=== PATIENT | male | born 1940 | race Caucasian/White ===

== ENCOUNTER 2016-12-19 12:06 | Observation (INO) | payer MEDICARE, OTHER ==
[2016-12-19 13:10] LABS: Hematocrit 46 % (42-52); Hemoglobin 14.8 g/dl (14.0-18.0); Mean Corpuscular HGB Conc 33 g/dl (31-36); Mean Corpuscular Hemoglobin 30 pg (27-31); Mean Corpuscular Volume 93 fL (80-94); Mean Platelet Volume 9 um3 (7.4-10.4); Red Blood Count 4.92 10^6/ul (4.0-5.4); Red Cell Distribution Width 14 % (10.5-15); White Blood Count 6.5 10^3/ul (3.5-10.8)
[2016-12-19 13:26] LABS: ALT 19 U/L (7-52); AST 34 U/L (13-39); Alkaline Phosphatase 54 U/L (34-104); Anion Gap 5 mmol/L (2-11); Blood Urea Nitrogen 22 mg/dL (6-24); CO2 Carbon Dioxide 29 mmol/L (22-32); Calcium 9.3 mg/dL (8.6-10.3); Chloride 104 mmol/L (101-111); EGFR African American 83.7 (>60); EGFR Non-African American 65.1 (>60); Globulin 3.2 g/dL (2-4); Glucose 102 mg/dL (70-100); Potassium 3.7 mmol/L (3.5-5.0); Sodium 138 mmol/L (133-145); Total Protein 7.2 g/dL (6.4-8.9)
[2016-12-19 13:28] LABS: Troponin I 0.01 ng/mL (<0.04)
[2016-12-19] MEDS ORDERED: Iohexol 300* (CONTRAST) 10 ML SDV IV ONE ×2 (13:33→18:19)
[2016-12-19 13:48] LABS: Lipase < 10 U/L (11.0-82.0)
--- NOTE | 2016-12-19 14:28 | RAD ---
INDICATION: Pedal edema. COMPARISON: There are no prior studies available for comparison. TECHNIQUE: Multiple real-time, color flow and Doppler tracings of both lower extremities were obtained. FINDINGS: The common femoral, femoral, profunda femoral and popliteal veins all demonstrate normal compressibility, augmentation with compression and phasic response with respiration. The posterior tibial and peroneal veins demonstrate normal compressibility and augmentation with compression. IMPRESSION: NO EVIDENCE FOR DEEP VENOUS THROMBOSIS.
[2016-12-19] MEDS ORDERED: Ondansetron INJ* 2 MG/ML VIAL IV PRN (14:50)
[2016-12-19] MEDS ORDERED: Acetaminophen TAB* 325 MG PO PRN (14:50)
[2016-12-19] MEDS: NS 0.9% 1000 ML* 1,000 ML IV SCH (16:23)
--- NOTE | 2016-12-19 19:12 | HP ---
HISTORY AND PHYSICAL: DATE OF ADMISSION: 12/19/16 PRIMARY CARE PROVIDER: Dr. Root. ATTENDING PHYSICIAN WHILE IN THE HOSPITAL: Dr. Oziel Garcia* (report dictated by Jb Patrick NP). CHIEF COMPLAINT: Altered mental status. HISTORY OF PRESENT ILLNESS: Mr. Colmenares is a 76-year-old male patient who carries a history of RIKA, he does not wear a CPAP; history of GERD; hypertension ; hyperlipidemia; atrial fibrillation; depression; dementia; history of BPH, comes into the ER today stating that he does not really remember what happened this morning, last thing he knew is in the last couple of weeks, he has been having cramping in bilateral lower extremities, in his legs, and in his calves as well and in his thighs. He says that he has also been noticing having some difficulty with abdominal discomfort around his waistline for the last year. He says he has not had any recent nausea or vomiting, no diarrhea. He denied having any fevers or chills. No cough. No shortness of breath or any chest pain. He says he does not really recall the events today, but his poured on his face to try to wake him up this morning. She sternal rubbed him, but despite this he would not wake up. So, she got concerned, she called 911 immediately. By the time she finished with 911, the patient was arousing, he was awakening, he says he feels like he was in and out of consciousness. He does not even really remember talking to his , but he could hear her calling 911. There were no reports of seizure-like activity. There were no reports of slurred speech, facial drooping, weakness to one side. He came into the ER and when he came into the ER, he was awake and alert x3, but there was concern because of this episode and the hospitalist service was asked to evaluate for admission. PAST MEDICAL HISTORY: Significant for: 1. RIKA. 2. GERD. 3. Hypertension. 4. Hyperlipidemia. 5. Atrial fibrillation. 6. Depression. 7. Dementia. 8. BPH. PAST SURGICAL HISTORY: He has had a pacemaker placed. MEDICATIONS: Home medications according to the pill bottles that were brought in by the patient includes: 1. Trazodone 50 mg at bedtime. 2. Catapres 0.2 mg daily. 3. Celebrex 200 mg p.o. b.i.d. 4. Warfarin 4.5 mg daily. 5. Flomax 0.4 mg p.o. daily. 6. Oxycodone 10 mg p.o. every 4 hours as needed. 7. OxyContin 15 mg p.o. b.i.d. 8. Namenda 28 mg p.o. daily. 9. Gabapentin 300 mg p.o. b.i.d. 10. Proscar 5 mg p.o. daily. 11. Nexium 40 mg daily. 12. Aricept 5 mg at bedtime. 13. Colace 100 mg p.o. b.i.d. 14. Lipitor 20 mg at bedtime. ALLERGIES TO MEDICATIONS: Include FENTANYL. FAMILY HISTORY: Both his parents had cancer. Father had lung cancer. SOCIAL HISTORY: He does not smoke, does not drink. Surrogate decision maker is his . REVIEW OF SYSTEMS: There is no documented fever. He denied having any significant weight change. There was no double vision. He denies having any ear discharge. There is no rhinorrhea. No sore throat. No thyroid enlargement. denies having any chest pain. There is no orthopnea, no nocturnal dyspnea. There is no abdominal pain. No nausea, no vomiting. No dysuria, no frequency. No seizure. There was no loss of consciousness. No pruritus and no skin ulcerations. Review of 14 systems completed, all others negative. PHYSICAL EXAMINATION GENERAL: At this time, Mr. Colmenares is a 76-year-old male patient. He appears to be well-nourished, well-developed. He is sitting in the ER stretcher. He does not appear to be in any acute distress. VITAL SIGNS: Blood pressure 140/85, pulse 62, respirations 18, O2 sat 96%, temperature of 96.7. HEENT: Head is atraumatic, normocephalic. Eyes: EOMs are intact. Sclerae were anicteric and not pale. Throat: Oral mucosa appears to be moist. No oropharyngeal erythema. NECK: Supple. LUNGS: Clear to auscultation bilaterally. No wheezes, rales, or rhonchi. HEART: Sounds S1, S2. Regular rate and rhythm. No murmurs, rubs, or gallops. ABDOMEN: Soft, flat, nontender. Bowel sounds present. EXTREMITIES: Pulses were 2+ throughout. He is able to move all 4 extremities with 5/5 strength. NEUROLOGIC: The patient now is awake. He is alert. He knows he is in the hospital. He knows the president and he knows the month. He is oriented to himself as well. His accounting intern were equal. Tongue midline. No facial drooping. [id number] intact bilaterally. No pronator drift. No gross focal deficits. SKIN: Intact. DIAGNOSTIC STUDIES/LAB DATA: Labs today revealed WBC of 6.5, RBC of 4.92, hemoglobin of 14.8, hematocrit of 46, platelets 149. INR of 3.31, PTT of 43.5. Sodium 138, potassium is 3.7, chloride of 104, bicarb 29, BUN 22, creatinine 1.10, glucose 102, his lactate was 0.8, calcium 9.3. Total bili 1.0, AST 34, ALT 19, alk phos 54. Troponin 0.01. His BNP was 47. Albumin 4.0. Lipase is negative. Urine is pending. He had a venous Doppler ultrasound, which revealed no evidence of DVT. EKG obtained today revealed a paced rhythm with AFib, Aflutter with a rate of 67. His chest x-ray, brain CT, and CT of the abdomen and pelvis are pending. Old medical records were reviewed. ASSESSMENT AND PLAN: Mr. Colmenares is a 76-year-old male patient coming into the ER today with complaints of altered mental status. He will be admitted under observation status for: 1. Altered mental status. Etiology is unclear, it certainly could be polypharmacy. He is on several narcotics. He is also on trazodone along with gabapentin. I will cut back down the OxyContin and I will also cut down the Neurontin and I have the held the trazodone to see how he responds to this. For the time being, I think we will get neuro checks every 4 hours. We will get a CT of the brain and urine is pending. I will continue to monitor. 2. Obstructive sleep apnea. Follow with his primary. I would recommend a mask at night to sleep with CPAP, but he refuses this. So, I think he can follow with his primary. 3. Gastroesophageal reflux disease. Continue PPI therapy. 4. Hypertension. Continue meds as prescribed. 5. Hyperlipidemia. Continue meds as prescribed. 6. Atrial fibrillation. Continue with warfarin and meds as prescribed. 7. Depression. Continue with supportive care. 8. Chronic pain. Continue with meds as prescribed, but at a reduced rate and intensity, I did reduce the dosage and I reduced the frequency. 9. Dementia. Continue with supportive care. 10. Benign prostatic hyperplasia. Continue with his Proscar. 11. DVT prophylaxis. His INR is 3.3, he will be placed on SCDs. 12. Code status. He wishes to be a DNR. We will try to find a MOLST form, if there is not one filled out, we will fill out now one with him. 13. Fluids, electrolytes, and nutrition. He can have a heart-healthy diet. TIME SPENT: On the admission 60 minutes, greater than half the time was spent face- to-face with the patient obtaining my history and physical; other half the time was spent going over the plan of care with the patient and implementing the plan of care. I did discuss the plan of care with my attending, Dr. Garcia; he is in agreement. JB PATRICK NP CC: Dr. Root* [id number]/[facility] #: [id number] POOL
--- NOTE | 2016-12-19 19:13 | RAD ---
HISTORY: Altered mental status COMPARISONS: May 26, 2015 TECHNIQUE: Multiple contiguous axial CT scans were obtained of the head without intravenous contrast. FINDINGS: HEMORRHAGE/INFARCT: There is no hemorrhage or acute infarct. MASSES/SHIFT: There is no mass or shift. EXTRA-AXIAL SPACES: There are no extra-axial fluid collections. SULCI AND VENTRICLES: There is diffuse and proportional enlargement of the sulci and ventricles. CEREBRUM: There are no focal parenchymal abnormalities. BRAINSTEM: There are no focal parenchymal abnormalities. CEREBELLUM: There are no focal parenchymal abnormalities. VESSELS: The vessels are grossly normal. PARANASAL SINUSES: The paranasal sinuses are clear. ORBITS: The orbits are unremarkable. BONES AND SOFT TISSUE: No bone or soft tissue abnormalities are noted. OTHER: None IMPRESSION: NO ACUTE INTRACRANIAL PATHOLOGY.
--- NOTE | 2016-12-19 19:20 | RAD ---
CLINICAL HISTORY: Abdominal pain COMPARISON: November 24, 2014 TECHNIQUE: Multiple contiguous axial CT scans were obtained of the abdomen and pelvis after the administration of intravenous contrast. Coronal and sagittal multiplanar reformations are submitted for review. Oral contrast was administered. Delayed images were obtained through the abdomen and pelvis. FINDINGS: Evaluation is limited in that the dome of the liver is not completely included within the [id number] the current examination. LUNG BASES: The lung bases are clear. LIVER: The visualized liver is normal in shape, size, and contour. The liver is diffusely low in attenuation compared to the spleen BILE DUCTS: There is no intrahepatic or extrahepatic biliary dilatation. GALLBLADDER: The gallbladder is incompletely distended but is grossly normal PANCREAS: The pancreas is normal, without mass or ductal dilatation. SPLEEN: Normal in size and appearance. UPPER GI TRACT: Evaluation of the gastrointestinal tract is limited by incomplete gastric distention. The upper GI tract is unremarkable. SMALL BOWEL AND MESENTERY: The small bowel is normal in contour, course, and caliber. There is no obstruction or dilatation. COLON: The colon is normal in contour, course, caliber. There is no pericolonic inflammatory change. ADRENALS: Normal bilaterally. KIDNEYS: Continue noted are renal cysts. There is no appreciable hydronephrosis or nephrolithiasis BLADDER: There is diffuse bladder wall thickening. The bladder is incompletely distended. PELVIC ORGANS: The prostate gland is normal. The seminal vesicles are symmetric. AORTA: The aorta is normal. IVC: Unremarkable LYMPH NODES: There is no lymphadenopathy by size criteria. ABDOMINAL WALL: There is no evidence for abdominal wall hernia. BONES AND SOFT TISSUES: Degenerative changes are noted of the spine most pronounced at L1-L2 OTHER: None IMPRESSION: 1. LIMITED STUDY. 2. FATTY LIVER. 3. DIFFUSE BLADDER WALL THICKENING WHICH CAN BE SEEN WITH CYSTITIS
[2016-12-19 20:03] LABS: Urine Bilirubin Negative (Negative); Urine Glucose Negative (Negative); Urine Nitrite Negative (Negative)
[2016-12-19 20:24] LABS: Benzodiazepine Urine Screen None Detected (None Detect)
[2016-12-19] MEDS ORDERED: Donepezil TAB* 5 MG PO SCH (21:00)
[2016-12-19] MEDS ORDERED: cefTRIAXone VIAL(*) 1,000 MG in NS 0.9% 50 ML* 50 ML IVPB SCH (21:00)
[2016-12-19] MEDS ORDERED: Atorvastatin* 20 MG TAB PO SCH (21:00)
--- NOTE | 2016-12-19 22:04 | RAD ---
Indication: Altered mental status. Calf tightness, pain, cramping. Comparison: May 26, 2015 Technique: Upright AP 1230 hours Report: Elevated lung volumes with patchy rarefaction of interstitial markings no focal pulmonary lesion, alveolar consolidation, pleural effusion, pneumothorax. Negative for cardiomegaly. Unchanged position of the RIGHT atrial and RIGHT ventricular level pacemaker leads accounting for rightward rotation. Unremarkable central pulmonary vasculature. Mildly tortuous descending thoracic aorta. Negative for free air beneath the diaphragm. IMPRESSION: Stigmata of probable chronic obstructive pulmonary disease and emphysema. No acute cardiopulmonary process evident.
[2016-12-19] MEDS: oxyCODONE SR TAB(*) 10 MG TAB.SR PO SCH (22:34)
[2016-12-19] MEDS: Gabapentin CAP(*) 100 MG PO SCH (22:35)
[2016-12-19] MEDS: Docusate CAP* 100 MG PO SCH (22:35)
--- NOTE | 2016-12-19 23:49 | ED ---
Ana Vanessa Anna, scribed for Andres Cruz MD on 12/19/16 at 1311 . Altered Mental Status - HPI Summary HPI Summary: Patient is a 76 y/o male coming to [facility] presenting with altered mental status that began this morning. His reports that she had a difficult time waking him up this morning at 0900. She tried using cold water and other strategies, but he did not rouse for an hour. She reports that his breathing was irregular, as if he was gasping for air, and he was diaphoretic. She called the ambulance. At this point, the patient reports he feels tired. He has bilateral leg pain and lower abdominal pain. The severity of his pain is described as 7/10. The abdominal pain has been present for about a year and has been checked out with no diagnosis. The leg pain started more recently, within the last two weeks, and has not been previously evaluated. He denies fever, chills, cough, congestion, changes in BM or urination, blood in stool. He takes 15 mg and 10 mg of oxycodone but does not think he overdosed. He is prescribed 6 pills/day, up to 90 mg/day. He takes 2 15mg/day. He took two of the 10 mg pills yesterday, which is pretty typical for him. His last dose was last night. He has not taken any medication today. His history is significant for HTN, HLD, a fib, chronic back pain. He has chronic pain throughout his body with no known cause. He takes Warfarin and Gabapentin daily. He takes Trazodone to help him sleep. He and his both state he would like to be admitted to the hospital. Patient medications have been reviewed this visit. - History Of Current Complaint Chief Complaint: EDAltMentalStatus Stated Complaint: IN PAIN Time Seen by Provider: 12/19/16 13:03 Hx Obtained From: Patient, Family/Skelp Processor - accompanied by Onset/Duration: Resolved - Allergies/Home Medications Allergies/Adverse Reactions: Allergies Allergy/AdvReac Type Severity Reaction Status Date / Time Fentanyl Allergy Unknown Verified 03/14/16 12:42 Reaction Details Home Medications: Home Medications Docusate CAP* [Colace Cap*] 100 mg PO BID 12/19/16 [History Confirmed 12/19/16] Gabapentin CAP(*) [Neurontin 300 CAP(*)] 300 mg PO BID 12/19/16 [History Confirmed 12/19/16] Oxycodone HCl [Oxycontin] 15 mg PO BID 12/19/16 [History Confirmed 12/19/16] Oxycodone TAB(NF) [Oxycodone HCl 10 MG] 10 mg PO Q4HR PRN 12/19/16 [History Confirmed 12/19/16] Warfarin TAB(*) [Coumadin TAB(*)] 4.5 mg PO DAILY 12/19/16 [History Confirmed ] PMH/Surg Hx/FS Hx/Imm Hx Endocrine/Hematology History: Reports: Hx Anticoagulant Therapy Denies: Hx Diabetes, Hx Thyroid Disease Cardiovascular History: Reports: Hx Atrial Fibrillation, Hx Hypercholesterolemia , Hx Hypertension, Hx Pacemaker/ICD - X 2 / 12 YEARS AGO., Other Cardiovascular Problems/Disorders - HIGH CHOLESTEROL, ON BLOOD THINNERS Denies: Hx Congestive Heart Failure Respiratory History: Reports: Hx Asthma, Hx Sleep Apnea Denies: Hx Chronic Obstructive Pulmonary Disease (COPD) GI History: Reports: Hx Gastroesophageal Reflux Disease Denies: Hx Ulcer History: Denies: Hx Dialysis, Hx Renal Disease Musculoskeletal History: Reports: Hx Back Problems - chronic pain, Other Musculoskeletal History - Chronic Pain Sensory History: Reports: Hx Contacts or Glasses Opthamlomology History: Reports: Hx Contacts or Glasses Neurological History: Reports: Hx Nerve Disease - Surgical History Surgery Procedure, Year, and Place: Pacemaker insertion x2; Cardiac Cath Hx Anesthesia Reactions: No Infectious Disease History: No Infectious Disease History: Reports: Hx Hepatitis - as young adult - does not know type, Hx Shingles - 2009 Denies: Hx Clostridium Difficile, Hx Human Immunodeficiency Virus (HIV), Hx of Known/Suspected MRSA, Hx Tuberculosis, Hx Known/Suspected VRE, Hx Known/ Suspected VRSA, History Other Infectious Disease, Traveled Outside the [place] in Last 30 Days - Family History Known Family History: Positive: Other - Hx transthoracic aortic aneurysm, brother. Hx Pancreatic CA, sister. - Social History Occupation: Retired Lives: With Family Alcohol Use: Weekly Alcohol Amount: 3-4 24oz a week Substance Use Type: Reports: None, Prescribed Hx Tobacco Use: No Smoking Status (MU): Never Smoked Tobacco Review of Systems Positive: Fatigue, Skin Diaphoresis Positive: Shortness Of Breath Positive: Abdominal Pain - chronic Positive: Arthralgia, Myalgia Neurological: Other - AMS All Other Systems Reviewed And Are Negative: Yes Physical Exam Triage Information Reviewed: Yes Vital Signs On Initial Exam: Initial Vitals Temp Pulse Resp BP Pulse Ox 96.7 F 88 20 145/87 97 12/19/16 12:10 12/19/16 12:10 12/19/16 12:10 12/19/16 12:10 12/19/16 12:10 Vital Signs Reviewed: Yes Appearance: Positive: Well-Appearing, No Pain Distress Skin: Positive: Warm, Skin Color Reflects Adequate Perfusion, Dry Head/Face: Positive: Normal Head/Face Inspection Eyes: Positive: EOMI, AR[place]IO ENT: Positive: Normal ENT inspection Neck: Positive: Supple, Nontender Respiratory/Lung Sounds: Positive: Clear to Auscultation, Breath Sounds Present Cardiovascular: Positive: RRR Abdomen Description: Positive: Soft, Other: - Mild abdominal tenderness Bowel Sounds: Positive: Present Musculoskeletal: Positive: Strength/ROM Intact, Other - Bilateral calf tenderness. Negative: Edema Left, Edema Right Neurological: Positive: Normal, Sensory/Motor Intact, Alert, Oriented to Person Place, Time Psychiatric: Positive: Affect/Mood Appropriate Diagnostics - Vital Signs Vital Signs Temp Pulse Resp BP Pulse Ox 12/19/16 12:16 96.7 F 85 16 145/87 100 12/19/16 12:10 96.7 F 88 20 145/87 97 - Laboratory Lab Results: Lab Results 12/19/16 12/19/16 12/19/16 Range/Units 12:54 12:54 12:54 WBC 6.5 (3.5-10.8) 10^3/ul RBC 4.92 (4.0-5.4) 10^6/ul Hgb 14.8 (14.0-18.0) g/dl Hct 46 (42-52) % MCV 93 (80-94) fL MCH 30 (27-31) pg MCHC 33 (31-36) g/dl RDW 14 (10.5-15) % Plt Count 149 L (150-450) 10^3/ul MPV 9 (7.4-10.4) um3 Neut % (Auto) 54.4 (38-83) % Lymph % (Auto) 30.0 (25-47) % [place] % (Auto) 9.3 H (1-9) % Eos % (Auto) 5.0 (0-6) % Baso % (Auto) 1.3 (0-2) % Absolute Neuts (auto) 3.5 (1.5-7.7) 10^3/ul Absolute Lymphs (auto) 2.0 (1.0-4.8) 10^3/ul Absolute Monos (auto) 0.6 (0-0.8) 10^3/ul Absolute Eos (auto) 0.3 (0-0.6) 10^3/ul Absolute Basos (auto) 0.1 (0-0.2) 10^3/ul Absolute Nucleated RBC 0.01 10^3/ul Nucleated RBC % 0.1 INR (Anticoag Therapy) 3.31 H (0.89-1.11) APTT 43.5 H (26.0-36.3) seconds Sodium 138 (133-145) mmol/L Potassium 3.7 (3.5-5.0) mmol/L Chloride 104 (101-111) mmol/L Carbon Dioxide 29 (22-32) mmol/L Anion Gap 5 (2-11) mmol/L BUN 22 (6-24) mg/dL Creatinine 1.10 (0.67-1.17) mg/dL Est GFR ( Amer) 83.7 (>60) Est GFR (Non-Af Amer) 65.1 (>60) BUN/Creatinine Ratio 20.0 (8-20) Glucose 102 H (70-100) mg/dL Lactic Acid (0.5-2.0) mmol/L Calcium 9.3 (8.6-10.3) mg/dL Total Bilirubin 1.00 (0.2-1.0) mg/dL AST 34 (13-39) U/L ALT 19 (7-52) U/L Alkaline Phosphatase 54 (34-104) U/L Troponin I 0.01 (<0.04) ng/mL B-Natriuretic Peptide ( - 100) pg/mL Total Protein 7.2 (6.4-8.9) g/dL Albumin 4.0 (3.2-5.2) g/dL Globulin 3.2 (2-4) g/dL Albumin/Globulin Ratio 1.3 (1-3) Lipase < 10 L (11.0-82.0) U/L 12/19/16 12/19/16 Range/Units 12:54 12:54 WBC (3.5-10.8) 10^3/ul RBC (4.0-5.4) 10^6/ul Hgb (14.0-18.0) g/dl Hct (42-52) % MCV (80-94) fL MCH (27-31) pg MCHC (31-36) g/dl RDW (10.5-15) % Plt Count (150-450) 10^3/ul MPV (7.4-10.4) um3 Neut % (Auto) (38-83) % Lymph % (Auto) (25-47) % [place] % (Auto) (1-9) % Eos % (Auto) (0-6) % Baso % (Auto) (0-2) % Absolute Neuts (auto) (1.5-7.7) 10^3/ul Absolute Lymphs (auto) (1.0-4.8) 10^3/ul Absolute Monos (auto) (0-0.8) 10^3/ul Absolute Eos (auto) (0-0.6) 10^3/ul Absolute Basos (auto) (0-0.2) 10^3/ul Absolute Nucleated RBC 10^3/ul Nucleated RBC % INR (Anticoag Therapy) (0.89-1.11) APTT (26.0-36.3) seconds Sodium (133-145) mmol/L Potassium (3.5-5.0) mmol/L Chloride (101-111) mmol/L Carbon Dioxide (22-32) mmol/L Anion Gap (2-11) mmol/L BUN (6-24) mg/dL Creatinine (0.67-1.17) mg/dL Est GFR ( Amer) (>60) Est GFR (Non-Af Amer) (>60) BUN/Creatinine Ratio (8-20) Glucose (70-100) mg/dL Lactic Acid 0.8 (0.5-2.0) mmol/L Calcium (8.6-10.3) mg/dL Total Bilirubin (0.2-1.0) mg/dL AST (13-39) U/L ALT (7-52) U/L Alkaline Phosphatase (34-104) U/L Troponin I (<0.04) ng/mL B-Natriuretic Peptide 47 ( - 100) pg/mL Total Protein (6.4-8.9) g/dL Albumin (3.2-5.2) g/dL Globulin (2-4) g/dL Albumin/Globulin Ratio (1-3) Lipase (11.0-82.0) U/L Result Diagrams: 12/19/16 12:54 12/19/16 12:54 Lab Statement: Any lab studies that have been ordered have been reviewed, and results considered in the medical decision making process. - Radiology CXR Xray Interpretation: No Acute Changes Radiology Interpretation Completed By: Radiologist - IMPRESSION: Stigmata of probable chronic obstructive pulmonary disease and emphysema. No acute cardiopulmonary process evident. - CT CT Brain WO CT Interpretation: No Acute Changes CT Interpretation Completed By: Radiologist - IMPRESSION: NO ACUTE INTRACRANIAL PATHOLOGY. CT abd/pel CT Interpretation: Positive (See Comments) CT Interpretation Completed By: Radiologist - IMPRESSION: 1. LIMITED STUDY. 2. FATTY LIVER. 3. DIFFUSE BLADDER WALL THICKENING WHICH CAN BE SEEN WITH CYSTITIS - Ultrasound No standard instances Ultrasound Interpretation: No Acute Changes Ultrasound Interpretation Completed By: Radiologist - VENOUS DOPPLER STUDY IMPRESSION: NO EVIDENCE FOR DEEP VENOUS THROMBOSIS. - EKG 1442 Cardiac Rate: NL - paced at 67 bpm EKG Rhythm: Sinus Rhythm ST Segment: Normal Ectopy: None Altered Mental Statu Course/Dx - Course Course Of Treatment: NO CRITICAL CARE TIME Assessment/Plan: ADMIT HOSPITALIST STABLE - Diagnoses Discharge Diagnoses: AMS, Altered mental state - Provider Notifications Discussed Care Of Patient With: Jb Patrick (Hospitalist PA) at 1409. Dr. Garcia (Hospitalist) at 1414. Agrees to accept patient for admission. Discharge - Discharge Plan Condition: Stable Disposition: ADMITTED TO [facility] documentation as recorded by the Ana todd Anna accurately reflects the service I personally performed and the decisions made by me, Andres Cruz MD.
[2016-12-20] MEDS: NS 0.9% 1000 ML* 1,000 ML IV SCH (01:30)
[2016-12-20 05:46] LABS: Hematocrit 44 % (42-52); Hemoglobin 14.6 g/dl (14.0-18.0); Mean Corpuscular HGB Conc 33 g/dl (31-36); Mean Corpuscular Hemoglobin 31 pg (27-31); Mean Corpuscular Volume 91 fL (80-94); Mean Platelet Volume 9 um3 (7.4-10.4); Red Blood Count 4.79 10^6/ul (4.0-5.4); Red Cell Distribution Width 14 % (10.5-15); White Blood Count 5.5 10^3/ul (3.5-10.8)
[2016-12-20 06:02] LABS: BUN/Creatinine Ratio 16.3 (8-20); Calcium 8.7 mg/dL (8.6-10.3); EGFR African American 102.9 (>60); Potassium 3.8 mmol/L (3.5-5.0)
[2016-12-20 07:25] VITALS: BP 150/93
[2016-12-20] MEDS: oxyCODONE SR TAB(*) 10 MG TAB.SR PO SCH (08:33)
[2016-12-20] MEDS: Gabapentin CAP(*) 100 MG PO SCH (08:33)
[2016-12-20] MEDS: Docusate CAP* 100 MG PO SCH (08:35)
[2016-12-20] MEDS ORDERED: Finasteride TAB* 5 MG PO SCH (09:00)
[2016-12-20] MEDS ORDERED: cloNIDine TAB* 0.1 MG PO SCH (09:00)
[2016-12-20] MEDS ORDERED: Memantine XR CAP* 28 MG CAP.XR PO SCH (09:00)
[2016-12-20] MEDS ORDERED: Tamsulosin CAP* 0.4 MG PO SCH (09:00)
[2016-12-20] MEDS ORDERED: Omeprazole CAP* 20 MG PO SCH (09:00)
[2016-12-20] MEDS ORDERED: oxyCODONE TAB* 5 MG TAB PO PRN (10:23)
--- NOTE | 2016-12-20 13:28 | DS ---
CC: Dr. Root DISCHARGE SUMMARY: DATE OF ADMISSION: DATE OF DISCHARGE: 12/20/16 HOSPITAL COURSE: This 76-year-old man presented because of obtundation. His said she has trie d to wake up at 9 o'clock in the morning at the day of admission because he had an appointment. He often sleeps quite late. She could not arouse him, she threw cold water on his face. Eventually, lolita giordano did come around and I think it may not had been until he got to the emergency room. His OxyContin and trazodone were both discontinued. His gabapentin dose was decreased. He was put on a p.r.n. dose of oxycodone. On the morning of discharge, he was completely back to his baseline. I had a long discussion with lolita monreal . They said he and she both agreed that they want him to get off medications. She seemed to imply they want him to get off all medications. I am not sure that is a realistic goal. We have ce rtainly cut back his medicines quite a bit, possibly he could have more medications reduced as an ou tpatient. My recommendation is I have sent in a prescription for gabapentin 100 mg for him to take twice a day for 2 weeks then stop. As mentioned above, his trazodone and OxyContin have both been d iscontinued. I had a discussion with her about pain control, I think the patient may be adequately controlled with less medication. He certainly may forget that he has had the pain before and that i s not a new pain and may not remember that he has been taking pain medication. My recommendation to her is that he try acetaminophen 650 mg for pain control, if that is not adequate that he take oxyc odone 5 mg every 4 hours p.r.n. I sent in a prescription for 40 tablets, so they have time to see lolita guzmán that worked. For severe pain uncontrolled by 5 mg of oxycodone, he could take 10 mg, he still casarez s some 10 mg tablets left. When those are used up, he could take two 5 mg tablets to make things si mpler to keep track of. FINAL DIAGNOSES: 1. Obtundation due to multiple sedating medications. 2. Alzheimer's disease. 3. Prostatism. 4. Atrial fibrillation. 5. Chronic pain. DISCHARGE MEDICATIONS: 1. Acetaminophen 650 mg every 4 hours p.r.n. 2. Oxycodone 5 mg every 4 hours p.r.n. 3. Oxycodone 10 mg every 6 hours p.r.n. 4. Gabapentin 100 mg b.i.d. 14 days then discontinue. 5. Finasteride 5 mg daily. 6. Clonidine 0.2 mg daily. 7. Celecoxib 200 mg b.i.d. 8. Tamsulosin 0.4 mg daily. 9. Memantine XR 28 mg daily. 10. Atorvastatin 20 mg h.s. 11. Esomeprazole 40 mg daily. 12. Donepezil 5 mg h.s. 13. Warfarin 4.5 mg daily. 14. Docusate 100 mg b.i.d. [id number]/[facility] #: [id number]
== END 2016-12-20 12:25 | disposition home or self-care (01) ==
LOC: ED 12:06 → MED 14:48
PROVIDERS: ADMIT Internal Medicine; ATTEND Internal Medicine
DX: R41.82 Altered mental status, unspecified (principal); T40.2X5A Adverse effect of other opioids, initial encounter; T43.215A Adverse effect of selective serotonin and norepinephrine reuptake inhibitors, initial encounter; X58.XXXA Exposure to other specified factors, initial encounter; G30.9 Alzheimer's disease, unspecified; F02.80 Dementia in other diseases classified elsewhere, unspecified severity, without behavioral disturbance, psychotic disturbance, mood disturbance, and anxiety; N40.0 Benign prostatic hyperplasia without lower urinary tract symptoms; I48.91 Unspecified atrial fibrillation; Z79.01 Long term (current) use of anticoagulants; G89.29 Other chronic pain; K21.9 Gastro-esophageal reflux disease without esophagitis; I10 Essential (primary) hypertension; E78.5 Hyperlipidemia, unspecified; G47.33 Obstructive sleep apnea (adult) (pediatric); F32.9 Major depressive disorder, single episode, unspecified; Z79.899 Other long term (current) drug therapy; Z88.5 Allergy status to narcotic agent; R06.09 Other forms of dyspnea; M79.605 Pain in left leg; M79.604 Pain in right leg
CPT/HCPCS: 36415; 70450; 71010; 74177; 80048; 80053; 80307; 81003; 83605; 83690; 83880; 84484; 85025; 85610; 85730; 87040; 87077; 87150; 87205; 93005; 93970; 96361; 96365; 96366; 99284; A9270-GY; G0378; J0696; Q9967

== ENCOUNTER 2017-05-19 09:28 | Day surgery (SDC) | payer MEDICARE, OTHER ==
[~2017-05-19 09:28] MED LIST: Acetaminophen TAB* 325 MG PO PRN; Buffered Lidocaine 0.9% SYRIN* 5 ML/SYR SYRINGE INTRADERM ONE
[2017-05-19] MEDS ORDERED: Midazolam* 1 MG/ML 2 ML VIAL (2 MG) ONE (10:18)
[2017-05-19] MEDS ORDERED: fentaNYL* 50 MCG/ML 2 ML VIAL (100 MCG VIAL) ONE (10:18)
[2017-05-19] MEDS ORDERED: Buffered Lidocaine 0.9% SYRIN* 5 ML/SYR SYRINGE ONE ×2 (10:27→16:13)
[2017-05-19 11:55] VITALS: BP 145/91
[2017-05-19] MEDS ORDERED: Tetracaine 0.5% OPTH.SOL 4 ML* 1 DROP BTL ONE (16:13)
[2017-05-19] MEDS ORDERED: Povidone Iodine 5% OPTH* 30 ML BTL ONE (16:13)
[2017-05-19] MEDS ORDERED: Ketorolac 0.5% OPHTH (NF) 0.5 % 5 ML BTL ONE (16:13)
[2017-05-19] MEDS ORDERED: Phenylephrine 2.5% OPTH.SOL* 2 ML BTL ONE (16:13)
[2017-05-19] MEDS ORDERED: acetaZOLAMIDE TAB* 250 MG ONE (16:13)
[2017-05-19] MEDS ORDERED: Tropicamide 1% OPTH.SOL* BTL ONE (16:13)
[2017-05-19] MEDS ORDERED: Cyclopentolate 1% OPTH.SOL* 2 ML BTL ONE (16:13)
[2017-05-19] MEDS ORDERED: Neomycin/Polymy/Dex OPHTH.OIN* 3.5 GM ONE (16:13)
[2017-05-19] MEDS ORDERED: Lidocaine 1% MPF* 2 ML VIAL ONE (16:13)
--- NOTE | 2017-05-20 02:13 | OP ---
DATE OF OPERATION: 05/19/17 - [facility] DATE OF : 40 SURGEON: Abdullahi Padron MD. ANESTHESIOLOGIST: Tiago Isidro MD ANESTHESIA: Monitored anesthesia care. PRE-OP DIAGNOSIS: Cataract, left eye. POST-OP DIAGNOSIS: Cataract, left eye. OPERATIVE PROCEDURE: Cataract surgery, left eye. IMPLANTS: SN60WF 19.5 diopter lens, left eye. COMPLICATIONS: None. DESCRIPTION OF PROCEDURE: The patient was given phenylephrine 2.5% and cyclopentolate 1% eye drops to the operative eye in the preoperative area. The patient was brought to the operating room where a time-out was taken to identify the correct patient, site, and side of surgery. The patient's left eye was prepped and draped in a usual sterile fashion with 5% Betadine. A second time-out was taken to verify the correct patient, site, and side of the surgery, and correct lens selection. A lid speculum was placed to the left eye. A 1-mm paracentesis blade was used to make a clear corneal incision in the inferotemporal position. Preservative-free 1% lidocaine was injected into the anterior chamber. DisCoVisc was then injected into the anterior chamber. A 2.75-mm keratome blade was used to make a triplanar incision at the superotemporal position. A cystotome initiated a capsulorrhexis, which was completed with Utrata forceps in a continuous and curvilinear manner. Hydrodissection of the lens was performed with BSS on a cannula. The lens could be spun in the capsular bag. The phacoemulsification handpiece was used with a igosdl-[id number]-[id number] technique to remove the nucleus in its entirety with 15.21 CDE. The I/A handpiece then removed the residual cortical lens material. DisCoVisc was injected to inflate the capsular bag. The planned SN60WF 19.5 diopter lens was injected into the capsular bag. The residual DisCoVisc was removed from the eye with the I/A handpiece. The corneal incisions were hydrated and no leaks occurred at physiologic pressure around 20 mmHg per palpation. The lid speculum was removed and drapes removed. Maxitrol ointment was placed on the surface of the operative eye. An adhesive patch and shield were then placed on the operative eye. The patient was taken to the postoperative area in stable condition. [id number]/[facility] #: [id number] [facility]
== END 2017-05-19 12:00 | disposition home or self-care (01) ==
LOC: OREAST 09:28
PROVIDERS: ATTEND Student in an Organized Health Care Education/Training Program
DX: H25.812 Combined forms of age-related cataract, left eye (principal); H16.223 Keratoconjunctivitis sicca, not specified as Sjogren's, bilateral; Z68.30 Body mass index [BMI] 30.0-30.9, adult; G47.33 Obstructive sleep apnea (adult) (pediatric); F03.90 Unspecified dementia, unspecified severity, without behavioral disturbance, psychotic disturbance, mood disturbance, and anxiety
CPT/HCPCS: A9270-GY; J2250; J3010; V2632

== ENCOUNTER 2017-05-26 06:39 | Day surgery (SDC) | payer MEDICARE, OTHER ==
[~2017-05-26 06:39] MED LIST changes: -Acetaminophen TAB* 325 MG PO PRN
[2017-05-26] MEDS ORDERED: Propofol* 10 MG/ML 20 ML BTL IV PUSH ONE (08:00)
[2017-05-26] MEDS ORDERED: Lidocaine 2% PF * 5 ML VIAL ONE (08:00)
[2017-05-26] MEDS ORDERED: Cyclopentolate 1% OPTH.SOL* 2 ML BTL ONE (08:01)
[2017-05-26] MEDS ORDERED: Lidocaine 1% MPF* 2 ML VIAL ONE (08:01)
[2017-05-26] MEDS ORDERED: Buffered Lidocaine 0.9% SYRIN* 5 ML/SYR SYRINGE ONE (08:01)
[2017-05-26] MEDS ORDERED: Tropicamide 1% OPTH.SOL* BTL ONE (08:01)
[2017-05-26] MEDS ORDERED: Tetracaine 0.5% OPTH.SOL 4 ML* 1 DROP BTL ONE (08:01)
[2017-05-26] MEDS ORDERED: Povidone Iodine 5% OPTH* 30 ML BTL ONE (08:01)
[2017-05-26] MEDS ORDERED: acetaZOLAMIDE TAB* 250 MG ONE (08:01)
[2017-05-26] MEDS ORDERED: Phenylephrine 2.5% OPTH.SOL* 2 ML BTL ONE (08:01)
[2017-05-26] MEDS ORDERED: Neomycin/Polymy/Dex OPHTH.OIN* 3.5 GM ONE (08:01)
[2017-05-26] MEDS ORDERED: Ketorolac 0.5% OPHTH (NF) 0.5 % 5 ML BTL ONE (08:02)
[2017-05-26 08:59] VITALS: BP 143/83
--- NOTE | 2017-05-26 09:36 | OP ---
DATE OF OPERATION: 05/26/17 - [facility] DATE OF : 40 SURGEON: Abdullahi Padron MD ANESTHESIOLOGIST: Hiro Choudhury DO ANESTHESIA: Monitored anesthesia care. PRE-OP DIAGNOSIS: Cataract, right eye with floppy iris syndrome. POST-OP DIAGNOSIS: Cataract, right eye with floppy iris syndrome. OPERATIVE PROCEDURE: Cataract surgery of right eye. IMPLANTS: SN60WF 19.0 diopter lens to the right eye. COMPLICATIONS: None. DESCRIPTION OF PROCEDURE: The patient was given phenylephrine 2.5% and cyclopentolate 1% eye drops to the operative eye in the preoperative area. The patient was brought to the operating room where a time-out was taken to identify the correct patient, site, and side of surgery. The patient's right eye was prepped and draped in the usual sterile fashion with 5% Betadine. A second time- out was taken to verify the correct patient, site, and side of surgery, and correct lens selection. A lid speculum was placed to the right eye. A 1-mm paracentesis blade was used to make a clear corneal incision in the superotemporal position. Preservative free 1% lidocaine was injected into the anterior chamber. DisCoVisc was then injected into the anterior chamber. A 2.75 mm keratome blade was used to make a triplanar incision at the inferotemporal position. A Malyugin ring was inserted for mechanical pupillary dilation due to the patient being on Flomax and demonstrating a floppy iris syndrome. A cystotome initiated a capsulorrhexis which was completed with Utrata forceps in a continuous and curvilinear manner. Hydrodissection of the lens was performed with BSS on a cannula. The lens could be spun in the capsular bag. The phacoemulsification handpiece was used with a divide and conquer technique to remove the nucleus in its entirety with 19.92 CDE. The I/ A handpiece was then removed with a residual cortical lens material. DisCoVisc was injected to inflate the capsular bag. The planned SN60WF 19.0 diopter lens was injected in the capsular bag. The Malyugin ring was then removed from the anterior chamber using a Radnor technique. The residual DisCoVisc was removed from the eye with the I/A handpiece. The corneal incisions were hydrated and no leaks occurred at physiologic pressure around 20 mmHg per palpation. The lid speculum was removed and drapes removed. Maxitrol ointment was placed to the surface of the operative eye. An adhesive patch and shield was placed on the operative eye. The patient was taken to the postoperative area in stable condition. [id number]/[facility] #: [id number] MTDD
== END 2017-05-26 08:49 | disposition home or self-care (01) ==
LOC: OREAST 06:39
PROVIDERS: ATTEND Student in an Organized Health Care Education/Training Program
DX: H25.811 Combined forms of age-related cataract, right eye (principal); H21.81 Floppy iris syndrome; T44.6X5A Adverse effect of alpha-adrenoreceptor antagonists, initial encounter; Z96.1 Presence of intraocular lens; H16.223 Keratoconjunctivitis sicca, not specified as Sjogren's, bilateral; E03.9 Hypothyroidism, unspecified; I48.91 Unspecified atrial fibrillation; Z95.0 Presence of cardiac pacemaker; Z88.5 Allergy status to narcotic agent; Z79.01 Long term (current) use of anticoagulants; Z79.82 Long term (current) use of aspirin; G30.9 Alzheimer's disease, unspecified; F02.80 Dementia in other diseases classified elsewhere, unspecified severity, without behavioral disturbance, psychotic disturbance, mood disturbance, and anxiety; F33.9 Major depressive disorder, recurrent, unspecified; F41.9 Anxiety disorder, unspecified; G89.4 Chronic pain syndrome; E78.5 Hyperlipidemia, unspecified; I25.10 Atherosclerotic heart disease of native coronary artery without angina pectoris; I10 Essential (primary) hypertension; G47.30 Sleep apnea, unspecified; N40.0 Benign prostatic hyperplasia without lower urinary tract symptoms; H43.813 Vitreous degeneration, bilateral; K21.9 Gastro-esophageal reflux disease without esophagitis
CPT/HCPCS: A9270-GY; J2704; V2632

== ENCOUNTER 2019-04-17 11:22 | Emergency (ER) | payer MEDICARE, OTHER ==
--- OUTSIDE RECORDS SUMMARY | 2019-04-17 11:44 | XMS REPORT | Continuity of Care Document ---
:1940 External Reference #:[id number] Author Name Mary Ellen Root M.D. Address [address] [place] [address] Care Team Providers Name Role Phone Anupam Meehan - Pain Medicine Care Team Information Crystal Machining Coordinator [phone] Gerontolgy Department - Geriatric Care Team Information Crystal Machining Coordinator Medicine Ivonne Odom MD - Cardiovascular Care Team Information Crystal Machining Coordinator Disease Problems Active Problems Provider Date Cellulitis Mitali Alcala M.D. Onset: 07/04/2011 Essential hypertension Mitali Alcala M.D. Onset: 07/04/2011 Coronary arteriosclerosis Mitali Alcala M.D. Onset: 07/04/2011 Hyperlipidemia Mitali Alcala M.D. Onset: 07/04/2011 Impaired fasting glycaemia Mitali Alcala M.D. Onset: 08/19/2011 Anxiety state Mitali Alcala M.D. Onset: 11/01/2011 Joint pain Mitali Alcala M.D. Onset: 11/01/2011 Abdominal pain Isaias Chu M.D. Onset: 11/21/2011 Malaise and fatigue Mitali Alcala M.D. Onset: 03/13/2012 Atrial fibrillation Mitali Alcala M.D. Onset: 03/13/2012 Chronic pain syndrome Mitali Alcala M.D. Onset: 03/13/2012 Recurrent major depressive episodes Isaias Chu M.D. Onset: 05/18/2013 Anticoagulant agent Isaias Chu M.D. Onset: 11/22/2013 Senile dementia Isaias Chu M.D. Onset: 12/13/2013 Adjustment disorder with depressed mood Mary Ellen Root M.D. Onset: 2015 Synovitis and tenosynovitis Mary Ellen Root M.D. Onset: 12/04/2016 Alzheimer's disease Mary Ellen Root M.D. Onset: 12/04/2016 Myalgia Mary Ellen Root M.D. Onset: 12/04/2016 Paroxysmal atrial fibrillation Mary Ellen Root M.D. Onset: 07/01/2017 Complete atrioventricular block Mary Ellen Root M.D. Onset: 08/05/2018 Chronic atrial fibrillation Mary Ellen Root M.D. Onset: 08/05/2018 Cardiac pacemaker in situ Mary Ellen Root M.D. Onset: 08/05/2018 Low back pain Mary Ellen Root M.D. Onset: 11/18/2018 Cardiomyopathy, unspecified Mary Ellen Root M.D. Onset: 11/18/2018 Recurrent major depression in full Mary Ellen Root M.D. Onset: 01/27/2019 remission Other insomnia Mary Ellen Root M.D. Onset: 01/27/2019 Social History Type Date Description Comments Sex Unknown Tobacco Use Start: Unknown Denies Tobacco Use ETOH Use Social Alcohol 2 glasses 3 times a week. Schnapps shot glasses. Tobacco Use Start: Unknown Patient has never smoked Recreational Drug Use Denies Drug Use Smoking Status Reviewed: 05/07/17 Patient has never smoked Allergies, Adverse Reactions, Alerts Active Allergies Reaction Severity Comments Date Fentanyl Dizzy, Confused 08/26/2008 Medications Active Medications SIG Qnty Indications Ordering Date Provider Physical Therapy evaluate and M54.5 Mary Ellen Warner 04/07/2019 treat low back Nora Root pain Right side. Pantoprazole Sodium Take 1 Tablet By 90tabs Mary Ellen Warner 03/31/2019 20mg Mouth Every Day Nora Root Tablets DR For The Stomach Memantine HCL ER Take 1 Capsule 90caps Mary Ellen Warner 03/23/2019 28mg Caps ER By Mouth Once Nora Root 24HR Daily Tramadol HCL take 1 tablet by 60tabs M54.5 Mary Ellen LDeann 02/24/2019 50mg Tablets mouth every Nora Root twice daily Trazodone HCL take 1 tablet by 90tabs Mary Ellen LDeann 03/04/2018 50mg Tablets mouth at bedtime Nora Root as needed for sleep Ra Col-Rite take 1 capsule 180caps K59.09 Mary Ellen LDeann 05/30/2016 100mg Capsules by mouth twice a Nora Root day stool softener Levothyroxine Sodium take 1 tablet by 90tabs E03.8 Mary Ellen LDeann 12/20/2015 25mcg mouth at night Nora Root Tablets thyroid Warfarin Sodium take 1 tablet by 90tabs Mary Ellen LDeann 11/29/2015 3mg Tablets mouth once daily Nora Root afib Vesicare take 1 tablet by 90tabs Kathy Jackie 11/29/2015 5mg Tablets mouth every day ALVIN [place] overactive bladder Atorvastatin Calcium Take 1 Tablet By 90tabs Mary Ellen LDeann 09/12/2011 20mg Mouth AT Bedtime Nora Root Tablets Tamsulosin HCL take 1 capsule 90caps Mary Ellen LDeann 08/01/2008 0.4mg Capsules by mouth every Nora Root day for urination/prosta te Finasteride 1 by mouth every 90tabs Mary Ellen LDeann 5mg Tablets day for Nora Root urination/prosta te Venlafaxine HCL ER Take 1 Tablet By 90tabs Mary Ellen LDeann 225mg Mouth Once Daily Nroa Root Tablets ER 24HR Toprol XL 1/2 by mouth 90tabs Mary Ellen L. 25mg Tablets ER 24HR twice a day Nora Root blood pressure Hydrochlorothiazide 1 by mouth every 100tabs Mary Ellen L. 12.5mg day blood Nora Root Tablets pressure Donepezil HCL 1 by mouth every 90tabs Mary Ellen LDeann 10mg Tablets day for memory Nora Root Gabapentin 1 by mouth two 60caps Mary Ellen Warner 300mg Capsules times a day for Nora oRot back pain, mood Vitamin D-3 1 by mouth daiy. Unknown 5000Unit Tablets Vitamin B12 3000mcg 1 po qd Unknown Vitamin B Complex W/ Olic Unknown Acid & C History Medications Losartan Potassium 1 by mouth every 90tabs I10 Mary Ellen Root, 2018 - day blood M.DDeann 04/07/2019 50mg Tablets pressure Immunizations CPT Code Status Date Vaccine Reaction Lot # 11538 Given 07/28/2018 High-Dose, Influenza Virus Vacccine-fluzone 65 and older 36610 Given 05/12/2018 Zoster (Shingles) Vaccine (HZV), #1 Recombinant, Subunit, Adjuvanted 26014 Given 03/03/2018 Zoster (Shingles) Vaccine (HZV), Recombinant, Subunit, Adjuvanted 20480 Given 04/03/2017 High-Dose, Influenza Virus Vacccine-fluzone 65 and older 78511 Given 04/12/2016 High-Dose, Influenza Virus Vacccine-fluzone 65 and older 60656 Given 04/26/2015 Pneumococcal Conjugate Vacc-13 51807 Given 04/26/2015 High-Dose, Influenza Virus Vacccine-fluzone 65 and older 74558 Given 05/10/2014 High-Dose, Influenza Virus Vacccine-fluzone 65 and older 35350 Given 05/18/2013 High-Dose, Influenza Virus [id number] Vacccine-fluzone 65 and older 20001 Given 12/09/2012 Tdap Tetanus, W Pertussis [id number] Q2038 Given 05/13/2012 Split Influenza Medicare: Fluzone [id number] 17442 Given 05/23/2011 DO Not Use Split Influenza Virus Vaccine 63666 Given 01/24/2011 Zostivax [id number] 73450 Given 06/02/2010 Pneumococcal Immunization [id number] 80955 Given 06/02/2010 DO Not Use Split Influenza Virus [id number] Vaccine 49589 Given 07/21/2009 DO Not Use Split Influenza Virus [id number] Vaccine 01989 Given 06/10/2008 DO Not Use Split Influenza Virus [id number] Vaccine 84049 Given 03/27/2006 Tetanus And Diptheria Adult Preservative Free >7Yrs Vital Signs Date Vital Result Comment 04/07/2019 2:01pm BP Systolic 118 mmHg BP Diastolic 60 mmHg Heart Rate 72 /min Body Temperature 97.5 F Respiratory Rate 16 /min Height 70 inches 5'10" Weight 226.38 lb BMI (Body Mass Index) 32.5 kg/m2 02/24/2019 11:51am BP Systolic 110 mmHg BP Diastolic 78 mmHg Heart Rate 72 /min Body Temperature 97.1 F Respiratory Rate 17 /min Height 70 inches 5'10" Weight 231.00 lb BMI (Body Mass Index) 33.1 kg/m2 Results Test Date Facility Test Result H/L Range Note Laboratory test 04/02/2019 [facility] Medicine Inr (Fma) 2.6 2.0-3.0 finding (607)- - Laboratory test 03/05/2019 [facility] Inr (Fma) 2.5 2.0-3.0 finding (607)- - Laboratory test 02/05/2019 [facility] Medicine Inr (Fma) 1.9 Low 2.0-3.0 finding (607)- - Laboratory test 01/06/2019 [facility] Inr (Fma) 2.5 2.0-3.0 finding (607)- - Laboratory test 12/23/2018 [facility] PSA 0.4 ng/mL 0.0-4.0 1 finding Laboratory test 12/17/2018 [facility] Creatine 92 U/L Normal 10-223 finding Kinase(CK) Erythrocyte Sed Rate 38 mm/Hr High 0-19 Laboratory test 12/16/2018 [facility] Medicine Inr (Fma) 2.7 2.0-3.0 finding (607)- - Laboratory test 12/02/2018 [facility] Inr (Fma) 3.6 High 2.0-3.0 finding (607)- - Laboratory test 11/11/2018 [facility] Medicine Inr (Fma) 2.3 2.0-3.0 finding (607)- - Urine Culture And 11/05/2018 [facility] Urine Culture SEE RESULT 2, 3 Sensitivities BELOW Ua - Micro (Fma) 11/05/2018 [facility] Appearance clear (607)- - Color yellow Glucose, Urine (Fma/CMC/CTX) negative Bilirubin negative Ketones trace SP Grav 1.025 Blood negative PH 5.5 Protein SSA 1+ Urobil 1.0 Nitrite negative Leukocytes (Fma/[facility]rex) trace Hyaline - /Lpf Granular - /Lpf WBC (Fma,[facility]) 3-5 RBC 0-1 Mucus (Fma/CBC/[facility]) sm amt /Lpf Epith - /Lpf Bacteria rare /Hpf Amorphous (Fma/CMC/[facility]rex) - /Lpf Crystals, Fluid (Fma/CMC/CTX) - CBC Electronic a 11/05/2018 [facility]) WBC 6.9 x10^3/UL 4.0- 10.0 RBC 4.83 x10^6/UL 3.93-6.00 HGB 15.7 g/dL 12.0-17.0 HCT 48 % 35-50 MCV 99.8 fL High 80.0-95.0 MCH 32.5 pg High 25.6-32.2 MCHC 32.6 g/dL 32.2-36.0 RDW-CV 14.0 % 11.6-14.4 PLT 208 x10^3/UL 163-400 MPV 10.6 fL 9.4-12.4 Bael# 4.48 x10^3/UL 1.56-6.13 Lymph# 1.58 x10^3/UL 1.18-3.74 Petroleum# 0.53 x10^3/UL 0.24-0.82 Eos # 0.3 x10^3/UL 0.0-0.5 Baso # 0.04 x10^3/UL 0.01-0.08 Abel% 64.7 % 34.0-70.0 Lymph % 22.8 % 20.0-52.0 Petroleum% 7.7 % 5.0-12.0 Eos% 3.8 % 0.7-7.0 Baso% 0.6 % 0.1-1.2 Comprehensive Metabolic 11/05/2018 [facility]) Sodium 148 mEq/L 134-149 Prof Potassium 4.6 mEq/L 3.6-5.5 Chloride 106 mEq/L 94-112 Carbon Dioxide 26 mEq/L 21-32 Glucose 158 mg/dL High 70-105 BUN 23 mg/dL 6-26 Creatinine 1.3 mg/dL 0.6-1.4 BUN/Creat Ratio 17.7 CALC 8.0-36.0 Calcium 9.5 mg/dL 8.6-10.2 Total Protein 7.8 g/dL 6.4-8.3 Albumin 4.6 g/dL 3.8-5.5 Globulin 3.2 g/dL 2.0-4.8 A/G Ratio 1.4 CALC 0.6-2.3 Alk. Phosphatase 75 U/L 22-95 Alt (SGPT) 28 U/L 7-35 Ast (Sgot) 25 U/L 5-34 Total Bilirubin 0.7 mg/dL 0.2-1.3 GFR Non- 57 ml/min/1.73m^ Low >=60 GFR >60 ml/min/1.73m^ >=60 Laboratory test 11/05/2018 [facility]) TSH 1.99 mIU/L 0.50-6.00 finding Laboratory test 10/28/2018 [facility] Inr (Fma) 3.4 High 2.0-3.0 finding (607)- - Laboratory test 10/14/2018 [facility] Inr (a) 3.1 High 2.0-3.0 finding (607)- - [address] Wilcox. 2 [id number] 3 SEE RESULT BELOW Name: JOSE RAUL MUNREO JR : [address]: Mary Ellen Root MD Acct: [id number] Unit: [id number] AGE: 78 Location: [facility] Re11/05/18 SEX: M Status: REG REF SPEC: [id number] VEE: 11/05/18-[address] [facility] [address]: Mary Ellen Root MD REQ: [id number] RECD: 11/05/18 STATUS: COMP _ S[facility]: Urine [facility] COMMENTS: [id number] Urine Source: Random Procedure Result Reported Site Urine Culture Final 11/06/18- 1610 ML No growth of clinically significant organisms * ML - Main Lab . END OF REPORT DEPARTMENT OF PATHOLOGY, [address] [place] [address] Kentrell Betancoutr M.D. Director [facility] # [id number] Procedures Date Code Description Status 04/02/2019 00323 Finger Or Heel Stick Completed 03/05/2019 34818 Finger Or Heel Stick Completed 02/05/2019 12031 Finger Or Heel Stick Completed 01/06/2019 41855 Finger Or Heel Stick Completed 12/16/2018 79697 Finger Or Heel Stick Completed 12/02/2018 02528 Finger Or Heel Stick Completed 11/11/2018 39183 Finger Or Heel Stick Completed 10/28/2018 45470 Finger Or Heel Stick Completed 10/14/2018 65709 Finger Or Heel Stick Completed 03/25/2016 [id number] Colonoscopy Completed Medical Devices Description No Information Available Encounters Type Date Location Provider Dx Diagnosis Office Visit 02/24/2019 11:20a Main Office Mary Ellen Root, M54.5 Low back pain Baldomero.DDeann F43.21 Adjustment disorder with depressed mood Office Visit 01/27/2019 11:00a Main Office Mary Ellen Warner I10 Essential ( primary) Nora Root hypertension I48.0 Paroxysmal atrial fibrillation F03.90 Unspecified dementia without behavioral disturbance I48.2 Chronic atrial fibrillation I25.10 Athscl heart disease of [place] coronary artery w/o ang pctrs F33.42 Major depressive disorder, recurrent, in full remission E78.5 Hyperlipidemia, unspecified G47.09 Other insomnia R53.1 Weakness Office Visit 12/23/2018 1:40p Main Office Mary Ellen Warner I10 Essential ( primary) Nora Root hypertension M54.5 Low back pain R06.02 Shortness of breath E66.3 Overweight F03.90 Unspecified dementia without behavioral disturbance N40.0 Benign prostatic hyperplasia without lower urinry tract symp Office Visit 11/18/2018 2:40p Main Office Mary Ellen Warner F03.90 Unspecified Nora Root dementia without behavioral disturbance I10 Essential (primary) hypertension I42.9 Cardiomyopathy, unspecified M54.5 Low back pain Office Visit 10/14/2018 2:00p Main Office Mary Ellen Warner I50.9 Heart failure, Nora Root unspecified Z79.01 USP (current) use of anticoagulants I48.0 Paroxysmal atrial fibrillation F43.21 Adjustment disorder with depressed mood Assessments Date Code Description Provider 04/07/2019 M54.5 Low back pain Mary Ellen Root M.D. 04/07/2019 R32 Unspecified urinary incontinence Mary Ellen Root M.D. 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 04/02/2019 I48.0 Paroxysmal atrial fibrillation Mary Ellen Root M.D. 03/05/2019 Z79.01 USP (current) use of anticoagulants Mary Ellen Root M.D. 03/05/2019 I48.0 Paroxysmal atrial fibrillation Mary Ellen Root M.D. 02/24/2019 M54.5 Low back pain Mary Ellen Root M.D. 02/24/2019 F43.21 Adjustment disorder with depressed mood Mary Ellen Root M.D. 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 02/05/2019 I48.0 Paroxysmal atrial fibrillation Mary Ellen Root M.D. 01/27/2019 I10 Essential (primary) hypertension Mary Ellen Root M.D. 01/27/2019 I48.0 Paroxysmal atrial fibrillation aMry Ellen Root M.D. 01/27/2019 F03.90 Unspecified dementia without behavioral Mary Ellen Root M.D. disturbance 01/27/2019 I48.2 Chronic atrial fibrillation Mary Ellen Root M.D. 01/27/2019 I25.10 Atherosclerotic heart disease of [place] Mary Ellen Root M.D. coronary artery with 01/27/2019 F33.42 Major depressive disorder, recurrent, in Mary Ellen Root M.D. full remission 01/27/2019 E78.5 Hyperlipidemia, unspecified Mary Ellen Root M.D. 01/27/2019 G47.09 Other insomnia Mary Ellen Root M.D. 01/27/2019 R53.1 Weakness Mary Ellen Root M.D. 01/06/2019 Z79.01 USP (current) use of anticoagulants Mary Ellen Root M.D. 01/06/2019 I48.0 Paroxysmal atrial fibrillation Mary Ellen Root M.D. 12/23/2018 I10 Essential (primary) hypertension Mary Ellen Root M.D. 12/23/2018 M54.5 Low back pain Mary Ellen Root M.D. 12/23/2018 R06.02 Shortness of breath Mary Ellen Root M.D. 12/23/2018 E66.3 Overweight Mary Ellen Root M.D. 12/23/2018 F03.90 Unspecified dementia without behavioral Mary Ellen Root M.D. disturbance 12/23/2018 N40.0 Benign prostatic hyperplasia without lower Mary Ellen Root M.D. 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 12/16/2018 I48.0 Paroxysmal atrial fibrillation Mary Ellen Root M.D. 12/02/2018 Z79.01 USP (current) use of anticoagulants Mary Ellen Root M.D. 12/02/2018 I48.0 Paroxysmal atrial fibrillation Mary Ellen Root M.D. 11/18/2018 F03.90 Unspecified dementia without behavioral Mary Ellen Root M.D. disturbance 11/18/2018 I10 Essential (primary) hypertension Mary Ellen Root M.D. 11/18/2018 I42.9 Cardiomyopathy, unspecified Mary Ellen Root M.D. 11/18/2018 M54.5 Low back pain Mary Ellen Root M.D. 11/11/2018 Z79.01 USP (current) use of anticoagulants Mary Ellen Root M.D. 11/11/2018 I48.0 Paroxysmal atrial fibrillation Mary Ellen Root M.D. 11/05/2018 G30.8 Other Alzheimer's disease Mary Ellen Root M.D. 11/05/2018 F02.80 Dementia in oth diseases classd elswhr w/o Mary Ellen Root M.D. behavrl disturb 11/05/2018 N39.0 Urinary tract infection, site not specified Mary Ellen Root M.D. 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 10/28/2018 I48.0 Paroxysmal atrial fibrillation Mary Ellen Root M.D. 10/14/2018 I50.9 Heart failure, unspecified Mary Ellen Root M.D. 10/14/2018 Z79.01 USP (current) use of anticoagulants Mary Ellen Root M.D. 10/14/2018 I48.0 Paroxysmal atrial fibrillation Mary Ellen Root M.D. 10/14/2018 F43.21 Adjustment disorder with depressed mood Mary Ellen Root M.D. Plan of Treatment Future Appointment(s):05/12/2019 11:20 am - Mary Ellen Root M.D. at Main Adbevl2905/06/2019 11:45 am - Mary Ellen Root M.D. at Main Roexzq9904/07/2019 - Mary Ellen Root M.D.M54.5 Low back painNew Medication:Physical Therapy - evaluate and treat low back pain Right side.Comments:You MUST go to physical therapy with Edmond Hagan. OK to stop the tramadol.start tylenol 650 mg 4 times a day. new xrays.R32 Unspecified urinary incontinenceComments:please call Dr. Wilcox's office and make an earlier appointment to discuss your incontinennceAllComments:Medication Management Patient Understands medications he's taking? Yes No Are there Barriersto Adherence? Yes No Has the patient been asked about herbal supplements and therapies, and OTC meds? Yes No Functional Status Description No Information Available Mental Status Description No Information Available Referrals Refer to Reason for Referral Status Appt Date [facility] Evaluate and treat. LT Created 04/12/[address] [facility] [id number] [phone]
--- NOTE | 2019-04-17 11:56 | ED ---
Back Pain - HPI Summary HPI Summary: This patient is a 79 year old male presenting to [facility] with a chief complaint of lower back pain since one week ago. He states he fell backwards onto the floor 1 week ago and landed on his back while reaching up over his head. He reports abdominal discomfort and denies NVD. He states urinary frequency. He rates his pain 8/10 in severity. He states he has been experiencing visual changes, possibly nystagmus since yesterday evening, but states it is normal now. He reports weakness in his lower extremities bilaterally. Medications reviewed. Allergies noted. Atorvastatin* [Lipitor 20 MG*] 20 mg PO BEDTIME 05/26/15 [History Confirmed 05/04] Esomeprazole(NF) [Nexium(NF)] 40 mg PO DAILY 05/26/15 [History Confirmed ] Finasteride TAB* [Proscar TAB*] 5 mg PO QPM 05/26/15 [History Confirmed 05/26/17 ] Memantine XR CAP* [Namenda XR CAP*] 28 mg PO QPM 05/26/15 [History Confirmed 05/04] Tamsulosin CAP* [Flomax CAP*] 0.4 mg PO DAILY 05/26/15 [History Confirmed ] celeCOXIB CAP* [Celebrex CAP*] 200 mg PO BID 05/26/15 [History Confirmed ] cloNIDine TAB* [Catapres 0.1 MG TAB*] 0.2 mg PO QPM 05/26/15 [History Confirmed 05/26/17] Donepezil TAB* [Aricept 5 MG TAB*] 5 mg PO BEDTIME 03/14/16 [History Confirmed 05/26/17] Docusate CAP* [Colace Cap*] 100 mg PO BID 12/19/16 [History Confirmed 05/26/17] Oxycodone TAB(NF) [Oxycodone HCl 10 MG] 5 mg PO Q4HR PRN 12/19/16 [History Confirmed 05/26/17] Warfarin TAB(*) [Coumadin TAB(*)] 4.5 mg PO DAILY 12/19/16 [History Confirmed ] Acetaminophen TAB* [Tylenol TAB*] 650 mg PO Q4H PRN #0 tab 12/20/16 [Rx Confirmed 05/26/17] Gabapentin CAP(*) [Neurontin 100 mg CAP(*)] 100 mg PO BID #28 cap 12/20/16 [Rx Confirmed 05/26/17] - History of Current Complaint Chief Complaint: EDBackInjuryPain Stated Complaint: BAD BACK PAIN PER PT Time Seen by Provider: 04/17/19 11:47 Hx Obtained From: Patient Onset/Duration: Gradual Onset, Lasting Weeks Onset/Duration: Started Weeks Ago Pain Intensity: 8 Pain Scale Used: 0-10 Numeric - Allergies/Home Medications Allergies/Adverse Reactions: Allergies Allergy/AdvReac Type Severity Reaction Status Date / Time fentanyl Allergy Unknown Unknown Verified 04/17/19 13:36 Reaction Details PMH/Surg Hx/FS Hx/Imm Hx Endocrine/Hematology History: Reports: Hx Anticoagulant Therapy Denies: Hx Diabetes, Hx Thyroid Disease Cardiovascular History: Reports: Hx Atrial Fibrillation, Hx Hypercholesterolemia , Hx Hypertension, Hx Pacemaker/ICD - X 2 / 12 YEARS AGO., Hx Rheumatic Fever - as a child, Other Cardiovascular Problems/Disorders - HIGH CHOLESTEROL, ON BLOOD THINNERS Denies: Hx Congestive Heart Failure Respiratory History: Reports: Hx Asthma, Hx Sleep Apnea Denies: Hx Chronic Obstructive Pulmonary Disease (COPD), Other Respiratory Problems/Disorders GI History: Reports: Hx Gastroesophageal Reflux Disease Denies: Hx Ulcer History: Denies: Hx Dialysis, Hx Renal Disease, Other Problems/Disorders Musculoskeletal History: Reports: Hx Back Problems - chronic pain, Other Musculoskeletal History - Chronic Pain Denies: Hx Tendonitis Sensory History: Reports: Hx Cataracts - prasanth, Hx Contacts or Glasses Denies: Hx Hearing Aid Opthamlomology History: Reports: Hx Cataracts - prasanth, Hx Contacts or Glasses Neurological History: Reports: Hx Nerve Disease Denies: Other Neuro Impairments/Disorders Psychiatric History: Reports: Hx Anxiety - no meds, Hx Depression - on meds - Surgical History Surgery Procedure, Year, and Place: Pacemaker insertion x2; Cardiac Cath Hx Anesthesia Reactions: No Infectious Disease History: No Infectious Disease History: Reports: Hx Hepatitis - as young adult - does not know type, Hx Shingles - 2009 Denies: Hx Clostridium Difficile, Hx Human Immunodeficiency Virus (HIV), Hx of Known/Suspected MRSA, Hx Tuberculosis, Hx Known/Suspected VRE, Hx Known/ Suspected VRSA, History Other Infectious Disease, Traveled Outside the [place] in Last 30 Days - Family History Known Family History: Positive: Other - Hx transthoracic aortic aneurysm, brother. Hx Pancreatic CA, sister. - Social History Alcohol Use: Weekly Alcohol Amount: 3-4 24oz a week Substance Use Type: Reports: None, Prescribed Hx Tobacco Use: No Smoking Status (MU): Never Smoked Tobacco Review of Systems Positive: Other - Visual changes Positive: Abdominal Pain. Negative: Vomiting, Diarrhea, Nausea Positive: frequency Positive: Other - Back pain Positive: Weakness All Other Systems Reviewed And Are Negative: Yes Physical Exam - Summary Physical Exam Summary: Constitutional: Well-developed, Well-nourished, Alert, Cooperative Skin: Warm, Dry HENT: Normocephalic; No Racoons eyes; No swenson's sign; No abrasion; No contusion; No hemotympanum; No maxilla facial tenderness or instability; Dentition are smooth; No dental trauma; No trismus Eyes: EOM normal, PERRL Neck: Trachea is midline. No stridor; No JVD; No step off; No posterior cervical spine tenderness Cardio: Rhythm regular, rate normal Heart sounds normal; Intact distal pulses; The pedal pulses are 2+ and symmetric. Radial pulses are 2+ and symmetric. Pulmonary/Chest wall: Effort normal; Breath sounds normal; Equal chest rise; No flail segment; No rib tenderness; No sternal tenderness Abd: Soft, Appearance normal. No distension; No tenderness; No palpable pulsatile mass; No Cullens sign; No Serrano-Turners sign Musculoskeletal: Full ROM and no tenderness at hips, ankles, shoulders, elbows and knees; No joint swelling; No step off or deformity of the spine; Pelvis is stable to lateral compression and rock. Left lower lateral back tenderness Neuro: Alert, Oriented x3, Strength 5/5 all extremities. Patient is able to ambulate slowly. : No blood at urethral meatus Psych: Mood and affect Normal Triage Information Reviewed: Yes Vital Signs On Initial Exam: Initial Vitals Temp Pulse Resp BP Pulse Ox 97.3 F 90 16 131/81 93 04/17/19 11:25 04/17/19 11:25 04/17/19 11:25 04/17/19 11:25 04/17/19 11:25 Vital Signs Reviewed: Yes Diagnostics - Vital Signs Vital Signs Temp Pulse Resp BP Pulse Ox 04/17/19 11:25 97.3 F 90 16 131/81 93 - Laboratory Result Diagrams: 04/17/19 12:17 04/17/19 12:17 Lab Statement: Any lab studies that have been ordered have been reviewed, and results considered in the medical decision making process. - Radiology CXR Radiology Interpretation Completed By: Radiologist Summary of Radiographic Findings: Scarring in the right lung base. No pneumonia is noted. Pacemaker leads are in place. ED Provider has reviewed this report. - CT Lumbar spine CT Interpretation Completed By: Radiologist Summary of CT Findings: No fracture of the lumbar spine is noted. Degenerative disc disease with is chronic is noted at L1-L2. Transverse and spinous processes are unremarkable. ED Provider has reviewed this report. Pelvis CT Interpretation Completed By: Radiologist Summary of CT Findings: No fracture of pelvis is noted. ED Provider has reviewed this report. - EKG 1241 Cardiac Rate: NL - 65 BPM Summary of EKG Findings: Paced rhythm. No evidence for STEMI. Back Pain Course/Dx - Course Course Of Treatment: Patient is here with one week of worsening lower back pain secondary to a fall that occurred. Patient did have lateral pain on his pelvis so a CT scan was performed. Patient's CT scan of his lumbar spine and pelvis show no fracture. Patient's chronic changes in his L1/L2 joint with nothing acute. Patient is borderline hypoxic so chest x-ray was ordered which showed no abnormality. He showed performed which is grossly unremarkable outside of a mildly elevated INR. Patient had negative UA for UTI. Patient had a bladder scan at one point which showed 11 cc of urine in his bladder making the possibly of cauda equina unlikely. Patient was encouraged to follow-up with his primary care doctor for further management and workup. - Diagnoses Provider Diagnoses: Lower back pain, Back contusion, Eye symptoms Discharge ED - Sign-Out/Discharge Documenting (check all that apply): Patient Departure - Discharge Patient Received Moderate/Deep Sedation with Procedure: No - Discharge Plan Condition: Stable Disposition: HOME Patient Education Materials: Back Pain (ED) Referrals: Mary Ellen Root MD [Primary Care Provider] - As Soon As Possible Additional Instructions: Return to ED with any new or worsening symptoms. Take your Tylenol at home. Follow up with your primary care provider as sson a possible. - Billing Disposition and Condition Condition: STABLE Disposition: Home - Attestation Statements Document Initiated by Scribe: Yes Documenting Scribe: Franko Arango Provider For Whom Alfonsoibgiuliana is Documenting (Include Credential): Donis Rocha MD Scribe Attestation: I, Franko Arango, scribed for Donis Rocha MD on 04/17/19 at 1511. Scribe Documentation Reviewed: Yes Provider Attestation: The documentation as recorded by the alfonsoibeFranko accurately reflects the service I personally performed and the decisions made by me, Donis Rocha MD Status of Scribe Document: Viewed
[2019-04-17 12:36] LABS: ABS Lymphocytes 1.7 10^3/ul (1.0-4.8); ABS Monocytes 1.3 10^3/ul (0-0.8); ABS Neutrophils 7.2 10^3/ul (1.5-7.7); Eosinophil % 0.2 %; Hematocrit 44 % (42-52); Hemoglobin 14.8 g/dL (14.0-18.0); Lymphocyte % 16.3 %; Mean Corpuscular HGB Conc 34 g/dL (31-36); Mean Corpuscular Hemoglobin 33 pg (27-31); Mean Corpuscular Volume 97 fL (80-94); Mean Platelet Volume 8.7 fL (7.4-10.4); Platelet Count 149 10^3/uL (150-450); Red Blood Count 4.51 10^6 /uL (4.18-5.48); Red Cell Distribution Width 14 % (10-15); White Blood Count 10.2 10^3/uL (3.5-10.8)
[2019-04-17 12:44] LABS: INR 3.26 (0.82-1.09)
[2019-04-17 12:54] LABS: Albumin 3.9 g/dL (3.2-5.2); Albumin/Globulin Ratio 1.3 (1-3); BUN/Creatinine Ratio 11.7 (8-20); Calcium 9.2 mg/dL (8.6-10.3); EGFR African American 77.3 (>60); EGFR Non-African American 63.9 (>60); Potassium 3.5 mmol/L (3.5-5.0); Total Protein 6.9 g/dL (6.4-8.9)
[2019-04-17 15:03] LABS: Urine Appearance Clear; Urine Bacteria Absent (Absent); Urine Bilirubin Negative (Negative); Urine Blood Negative (Negative); Urine Color Yellow; Urine Glucose Negative (Negative); Urine Ketones Negative (Negative); Urine Nitrite Negative (Negative); Urine Protein Negative (Negative); Urine Red Blood Cell Trace(0-2/hpf) (Absent); Urine Specific Gravity 1.015 (1.010-1.030); Urine Squamous Epithelial Cell Present (Absent); Urine Urobilinogen Negative (Negative); Urine White Blood Cell Trace(0-5/hpf) (Absent)
[2019-04-17 15:22] VITALS: BP 135/82
== END 2019-04-17 15:22 | disposition home or self-care (01) ==
LOC: ED 11:22
DX: S30.0XXA Contusion of lower back and pelvis, initial encounter (principal); W19.XXXA Unspecified fall, initial encounter; Y92.9 Unspecified place or not applicable; M51.36 Other intervertebral disc degeneration, lumbar region; I48.91 Unspecified atrial fibrillation; E78.00 Pure hypercholesterolemia, unspecified; I10 Essential (primary) hypertension; J45.909 Unspecified asthma, uncomplicated; F41.9 Anxiety disorder, unspecified; F32.9 Major depressive disorder, single episode, unspecified; Z95.810 Presence of automatic (implantable) cardiac defibrillator; Z79.01 Long term (current) use of anticoagulants; Z79.899 Other long term (current) drug therapy; Z88.5 Allergy status to narcotic agent
CPT/HCPCS: 36415; 71046; 72131; 72192; 80053; 81003; 81015; 85025; 85610; 87086; 87088; 93005; 99282

== ENCOUNTER 2019-12-01 16:30 | Emergency (ER) | payer MEDICARE, OTHER ==
--- OUTSIDE RECORDS SUMMARY | 2019-12-01 16:45 | XMS REPORT | Continuity of Care Document ---
:1940 External Reference #:[id number] Author Name Mary Ellen Root M.D. Address [address] [place] [address] Care Team Providers Name Role Phone Anupam Meehan - Pain Medicine Care Team Information Ground Crewman [phone] Gerontolgy Department - Geriatric Care Team Information Ground Crewman Medicine Ivonne Odom MD - Cardiovascular Care Team Information Ground Crewman Disease Problems Active Problems Provider Date Cellulitis [...] Use Denies Drug Use Smoking Status Reviewed: 08/30/19 Patient has never smoked Allergies, Adverse Reactions, Alerts Active Allergies Reaction Severity Comments Date Fentanyl Dizzy, Confused 08/26/2008 Medications Active Medications SIG Qnty Indications Ordering Date Provider Dok Take 1 Capsule By 180caps K59.09 Mary Ellen Warner 08/29/2019 100mg Capsules Mouth Twice Daily Nora Root Escitalopram Oxalate take 1 tablet by 90tabs Mary Ellen Warner 04/07/2019 mouth once daily Nora Root 5mg Tablets Pantoprazole Sodium take 1 tablet by 90tabs Mary Ellen Warner 03/31/2019 mouth every day Nora Root 20mg Tablets DR for the stomach Memantine HCL ER Take 1 Capsule By 90caps Mary Ellen LDeann 03/23/2019 28mg Mouth Once Daily Nora Root Caps ER 24HR Tramadol HCL take 1 tablet by 60tabs M54.5 Ana Cristina 02/24/2019 50mg mouth every twice [place], Tablets daily Afnp-C Losartan Potassium 1 by mouth every 90tabs I10 Mary Ellen L. 12/23/2018 50mg day blood Nora Root Tablets pressure Trazodone HCL take 1 tablet by 90tabs Mary Ellen L. 03/04/2018 50mg mouth at bedtime Nora Root Tablets if needed for sleep Levothyroxine Sodium take 1 tablet by 90tabs E03.8 Mary Ellen L. 12/20/2015 mouth at night Nora Root 25mcg Tablets thyroid Warfarin Sodium take 1 tablet by 90tabs Mary Ellen L. 11/29/2015 3mg mouth once daily Nora Root Tablets afib Vesicare take 1 tablet by 90tabs Kathy Jackie 11/29/2015 5mg Tablets mouth every day ALVIN Casper overactive bladder Atorvastatin Calcium take 1 tablet by 90tabs Mary Ellen L. 09/12/2011 mouth at bedtime Nora Root 20mg Tablets Tamsulosin HCL take 1 capsule by 90caps Mary Ellen L. 08/01/2008 0.4mg mouth every day Nora Root Capsules for urination/prostate Finasteride 1 by mouth every 90tabs Mary Ellen L. 5mg Tablets day for Nora Root urination/prostate Venlafaxine HCL ER take 1 tablet by 90tabs Mary Ellen L. mouth once daily Nora Root 225mg Tablets ER 24HR Toprol XL 1/2 by mouth twice 90tabs Mary Ellen L. 25mg Tablets a day blood Nora Root ER 24HR pressure Donepezil HCL 1 by mouth every 90tabs Mary Ellen L. 10mg day for memory Nora Root Tablets Gabapentin 1 by mouth two 60caps Mary Ellen L. 300mg times a day for Nora Root Capsules back pain, mood Vitamin D-3 1 by mouth daiy. Unknown 5000Unit Tablets Vitamin B12 3000mcg 1 po qd Unknown Vitamin B Complex W/ Unknown Olic Acid & C Immunizations CPT Code Status Date Vaccine Reaction Lot # [id number] Given 05/12/2019 High-Dose, Influenza Virus [id number] Vacccine-fluzone 65 and older 18290 Given 07/28/2018 High-Dose, Influenza Virus Vacccine-fluzone 65 and older 35035 Given 05/12/2018 Zoster (Shingles) Vaccine (HZV), #1 Recombinant, Subunit, Adjuvanted 32746 Given 03/03/2018 Zoster (Shingles) Vaccine (HZV), Recombinant, Subunit, Adjuvanted 31704 Given 04/03/2017 High-Dose, Influenza Virus Vacccine-fluzone 65 and older 78465 Given 04/12/2016 High-Dose, Influenza Virus Vacccine-fluzone 65 and older 39866 Given 04/26/2015 Pneumococcal Conjugate Vacc-13 27837 Given 04/26/2015 High-Dose, Influenza Virus Vacccine-fluzone 65 and older 09792 Given 05/10/2014 High-Dose, Influenza Virus Vacccine-fluzone 65 and older 36316 Given 05/18/2013 High-Dose, Influenza Virus [id number] Vacccine-fluzone 65 and older 27936 Given 12/09/2012 Tdap Tetanus, W Pertussis [id number] Q2038 Given 05/13/2012 Split Influenza Medicare: Fluzone [id number] 80292 Given 05/23/2011 DO Not Use Split Influenza Virus Vaccine 43954 Given 01/24/2011 Zostivax [id number] 86857 Given 06/02/2010 Pneumococcal Immunization [id number] 13600 Given 06/02/2010 DO Not Use Split Influenza Virus [id number] Vaccine 22611 Given 07/21/2009 DO Not Use Split Influenza Virus [id number] Vaccine 69606 Given 06/10/2008 DO Not Use Split Influenza Virus [id number] Vaccine 24170 Given 03/27/2006 Tetanus And Diptheria Adult Preservative Free >7Yrs Vital Signs Date Vital Result Comment 09/15/2019 11:52am BP Systolic 90 mmHg BP Diastolic 70 mmHg Heart Rate 68 /min Height 70 inches 5'10" Weight 215.00 lb BMI (Body Mass Index) 30.8 kg/m2 08/30/2019 1:30pm BP Systolic 128 mmHg BP Diastolic 72 mmHg Heart Rate 92 /min Body Temperature 97.0 F Respiratory Rate 16 /min Height 70 inches 5'10" Weight 218.00 lb BMI (Body Mass Index) 31.3 kg/m2 Results Test Acquired Date Facility Test Result H/L Range Note Laboratory test 10/07/2019 [facility] In[facility] (a) 1.9 Low 2.0-3.0 finding (607)- - Comprehensive 09/15/2019 [facility]) Sodium 140 mEq/L 134-149 Metabolic Prof Potassium 4.9 mEq/L 3.6-5.5 Chloride 102 mEq/L 94-112 Carbon Dioxide 26 mEq/L 21-32 Glucose 93 mg/dL 70-105 BUN 29 mg/dL High 6-26 Creatinine 1.5 mg/dL High 0.6-1.4 BUN/Creat Ratio 19.3 CALC 8.0-36.0 Calcium 10.2 mg/dL 8.9-10.6 Total Protein 7.6 g/dL 6.4-8.3 Albumin 4.5 g/dL 3.8-5.5 Globulin 3.1 g/dL 2.0-4.8 A/G Ratio 1.5 CALC 0.6-2.3 Alk. Phosphatase 66 U/L 22-95 Alt (SGPT) 16 U/L 7-35 Ast (Sgot) 19 U/L 5-34 Total Bilirubin 0.8 mg/dL 0.2-1.3 GFR Non- 48 ml/min/1.73m^ Low >=60 GFR 58 ml/min/1.73m^ Low >=60 CBC Electronic [facility]ma 09/15/2019 [facility]) WBC 9.5 x10^3/UL 4.0- 10.0 RBC 4.85 x10^6/UL 3.93-6.00 HGB 16.2 g/dL 12.0-17.0 HCT 49 % 35-50 MCV 101.0 fL High 80.0-95.0 MCH 33.4 pg High 25.6-32.2 MCHC 33.1 g/dL 32.2-36.0 RDW-CV 13.4 % 11.6-14.4 PLT 196 x10^3/UL 163-400 MPV 10.7 fL 9.4-12.4 Abel# 6.13 x10^3/UL 1.56-6.13 Lymph# 2.18 x10^3/UL 1.18-3.74 [place]# 0.91 x10^3/UL High 0.24-0.82 Eos # 0.2 x10^3/UL 0.0-0.5 Baso # 0.04 x10^3/UL 0.01-0.08 Abel% 64.9 % 34.0-70.0 Lymph % 23.0 % 20.0-52.0 [place]% 9.6 % 5.0-12.0 Eos% 1.8 % 0.7-7.0 Baso% 0.4 % 0.1-1.2 Drug Screen Urine 09/07/2019 [facility] Urine Hydrocodone None Detected None Detect Pain Clinic Screen Urine Oxycodone Screen None Detected None Detect Urine Fentanyl Screen Presumptive Posi <SEE NOTE> Abnormal None Detect 1 Urine Methadone Screen None Detected None Detect Urine Buprenorphine Screen None Detected None Detect Urine Amphetamine Screen None Detected None Detect Urine Barbiturates Screen None Detected None Detect Urine Benzodiazepine Screen None Detected None Detect Urine Cannabinoids Screen None Detected None Detect Urine Cocaine Screen None Detected None Detect Urine Opiates Screen None Detected None Detect Urine Phencyclidine Screen None Detected None Detect 2 Tramadol And Metabolite, 09/07/2019 [facility] Tramadol Urine 19327 ng/mL Cutoff:25 Urine O-desmethyltramadol 06369 ng/mL Cutoff:25 3 Fentanyl Confirmation Urine 09/07/2019 [facility] Norfentanyl Level Negative ng/ mL 4 Fentanyl Level Negative ng/mL 5 Fentanyl Interp Negative. 6 Laboratory test 06/18/2019 [facility] ([facility]) 2.4 2.0-3.0 finding (607)- - Laboratory test 05/31/2019 [facility]) Free T4 1.08 ng/dL 0.75- 1.54 finding TSH 1.49 mIU/L 0.50-6.00 Laboratory test finding 05/27/2019 [facility] ([facility]) 2.7 2.0- 3.0 (607)- - 1 Presumptive Positive Presumptive positive results are unconfirmed. 2 The specimen was tested at the listed cutoffs: Drug Class Test level (ng/mL) Hydrocodone 300 Oxycodone 100 Fentanyl 1 Methadone 150 Buprenorphine 5 Amphetamines 500 Barbiturates 200 Benzodiazepines 200 Cocaine 150 Cannabinoids 50 Opiates 300 PCP 25 Specimen was received without chain of custody. Results should be used for medical purposes only. 3 ADDITIONAL INFORMATION Testing performed by Liquid Chromatography-Tandem Mass Spectrometry (LC-MS/MS). This test was developed and its performance characteristics determined by [facility] in a manner consistent with CLIA requirements. This test has not been cleared or approved by the U.S. Food and Drug Administration. Test Performed by: [facility] [address] [place] [id number] Theology Professor: Andres Roque M.D. Ph.D.; CLIA# [id number] 4 REFERENCE VALUE Cutoff: 1.0 5 REFERENCE VALUE Cutoff: 0.2 6 ADDITIONAL INFORMATION This test was developed and its performance characteristics determined by [facility] in a manner consistent with CLIA requirements. This test has not been cleared or approved by the U.S. Food and Drug Administration. Test Performed by: [facility] [address] [place] [address] Theology Professor: Andres Roque M.D. Ph.D.; CLIA# [id number] Procedures Date Code Description Status 10/07/2019 92997 Finger Or Heel Stick Completed 06/18/2019 05561 Finger Or Heel Stick Completed 05/27/2019 90666 Finger Or Heel Stick Completed 03/25/2016 92918037 Colonoscopy Completed Medical Devices Description No Information Available Encounters Type Date Location Provider Dx Diagnosis Office Visit 09/15/2019 11:00a Main Office Mary Ellen Root M54.5 Low back pain Nora I10 Essential (primary) hypertension E03.9 Hypothyroidism, unspecified I48.0 Paroxysmal atrial fibrillation I25.10 Athscl heart disease of [place] coronary artery w/o ang pctrs F33.42 Major depressive disorder, recurrent, in full remission E78.5 Hyperlipidemia, unspecified Office Visit 08/30/2019 1:45p Main Office Ana Cristina Roy M54.5 Low back pain Afnp-C Office Visit 07/14/2019 2:20p Main Office Mary Ellen Tucker Essential ( primary) Nora Root hypertension E03.9 Hypothyroidism, unspecified M54.5 Low back pain Office Visit 05/31/2019 2:20p Main Office Mary Ellen Tucker Essential ( primary) Nora Root hypertension E03.9 Hypothyroidism, unspecified R63.4 Abnormal weight loss Assessments Date Code Description Provider 11/10/2019 I10 Essential (primary) hypertension Mary Ellen Root M.D. 11/10/2019 M54.5 Low back pain Mary Ellen Root M.D. 10/07/2019 Z79.01 FDC (current) use of anticoagulants Mary Ellen Root M.D. 10/07/2019 I48.11 Longstanding persistent atrial Mary Ellen L. Dk, M.D. fibrillation 09/15/2019 M54.5 Low back pain Mary Ellen Root M.D. 09/15/2019 I10 Essential (primary) hypertension Mary Ellen Root M.D. 09/15/2019 E03.9 Hypothyroidism, unspecified Mary Ellen Root M.D. 09/15/2019 I48.0 Paroxysmal atrial fibrillation Mary Ellen Root M.D. 09/15/2019 I25.10 Atherosclerotic heart disease of [place] Mary Ellen Root M.D. coronary artery with 09/15/2019 F33.42 Major depressive disorder, recurrent, in Mary Ellen Root M.D. full remission 09/15/2019 E78.5 Hyperlipidemia, unspecified Mary Ellen Root M.D. 08/30/2019 M54.5 Low back pain Moisenp-C 07/14/2019 I10 Essential (primary) hypertension Mary Ellen Root M.D. 07/14/2019 E03.9 Hypothyroidism, unspecified Mary Ellen Root M.D. 07/14/2019 M54.5 Low back pain Mary Ellen Root M.D. 06/18/2019 Z79.01 FDC (current) use of anticoagulants Mary Ellen Root M.D. 06/18/2019 I48.11 Longstanding persistent atrial Mary Ellen Root M.D. fibrillation 05/31/2019 I10 Essential (primary) hypertension Mary Ellen Root M.D. 05/31/2019 E03.9 Hypothyroidism, unspecified Mary Ellen Root M.D. 05/31/2019 R63.4 Abnormal weight loss Mary Ellen Root M.D. 05/27/2019 Z79.01 FDC (current) use of anticoagulants Mary Ellen Root M.D. 05/27/2019 I48.11 Longstanding persistent atrial Mary Ellen Root M.D. fibrillation Plan of Treatment 11/10/2019 - Mary Ellen L. Dk, M.D.I10 Essential (primary) hypertensionComments :leave it for nowno hydrochlorothiazide for now.continue to monitor blood pressure. Take it three times a week. we'll see what it is next month.Follow up :1 owibnT29.5 Low back painComments:I will continue your tramadol.continue to get exercise.AllComments:Medication Management Patient Understands medications she 's taking? Yes No Are there Barriers to Adherence? Yes No Has the patient been asked about herbal supplements and therapies, and OTC meds ? Yes No Care Plan1. Patient has been queried about patient's goals/preferences and functional/lifestyle goals at relevant visits. If relevant, describe: na2. Treatment goals as explained to the patient: above3. Are there barriers to meeting treatment goals? Yes No If Yes, please describe:4. Self-Management goals as described to the patient: Yes NoI10 Essential (primary) hypertensionComments:leave it for nowno hydrochlorothiazide for now.continue to monitor blood pressure. Take it three times a week. we'll see what it is next month.Follow up:1 pusexG48.5 Low back painComments:I will continue your tramadol.continue to get exercise.AllComments:Medication Management Patient Understands medications she 's taking? Yes No Are there Barriers to Adherence? Yes No Has the patient been asked about herbal supplements and therapies, and OTC meds? Yes No Care Plan1. Patient has been queried about patient's goals/preferences and functional/lifestyle goals at relevant visits. If relevant, describe: na2. Treatment goals as explained to the patient: above3. Are there barriers to meeting treatment goals? Yes No If Yes, please describe:4. Self- Management goals as described to the patient: Yes No Functional Status Description No Information Available Mental Status Description No Information Available Referrals Description No Information Available
[2019-12-01] MEDS ORDERED: Tetan/Diph/Pertus SYR(Tdap)* 0.5 ML SYR(BOOSTRIX) use SYR contains LATEX IM ONE (16:59)
--- NOTE | 2019-12-01 17:01 | ED ---
Head Injury - HPI Summary HPI Summary: Patient is a 79 y/o M presenting to [facility] for head injury. The patient states that he accidentally rolled out of bed around 0500 12/01/19 and injured his head. He denies GRIMES and vomiting but notes a laceration to his right religion. The patient has a pacemaker and Hx of afib; he reports that he is on coumadin. Patient was evaluated at urgent care and sent to ED for further workup. Last tetanus shot is unknown. He is a non-smoker, drinks alcohol occasionally, and denies substance usage. Home medications and allergies are reviewed. - History Of Current Complaint Chief Complaint: EDHeadInjury Stated Complaint: LAC TO RIGHT DRUZE PER PT Time Seen by Provider: 12/01/19 16:52 Hx Obtained From: Patient Mechanism Of Injury: Fall From Height Of: - bed Onset/Duration: Still Present Onset of Pain: Prior to Arrival Pain Intensity: 0 Pain Scale Used: 0-10 Numeric Location: Discrete At: - right religion laceration Associated Signs And Symptoms: Negative - Allergies/Home Medications Allergies/Adverse Reactions: Allergies Allergy/AdvReac Type Severity Reaction Status Date / Time fentanyl Allergy Unknown Unknown Verified 09/07/19 10:31 Reaction Details Home Medications: Home Medications Acetaminophen [Tylenol] 650 mg PO Q4H PRN 09/07/19 [History Confirmed 09/07/19] Aspirin [Aspir-Low] 81 mg PO BID 09/07/19 [History Confirmed 09/07/19] Atorvastatin* [Lipitor*] 20 mg PO QPM 09/07/19 [History Confirmed 09/07/19] Cholecalciferol CAP/TAB(NF) [Vitamin D3 CAP/TAB (NF)] 2 cap PO DAILY 09/07/19 [ History Confirmed 09/07/19] Cyanocobalamin TAB* [Vitamin B12 TAB*] 3,000 mcg PO DAILY 09/07/19 [History Confirmed 09/07/19] Docusate CAP* [Colace Cap*] 100 mg PO BID 09/07/19 [History Confirmed 09/07/19] Donepezil HCl [Aricept] 10 mg PO BEDTIME 09/07/19 [History Confirmed 09/07/19] Escitalopram * [Lexapro 5 mg (NF)] 5 mg PO DAILY 09/07/19 [History Confirmed ] Finasteride TAB* [Proscar TAB*] 5 mg PO DAILY 09/07/19 [History Confirmed ] Gabapentin CAP(*) [Neurontin 300 CAP(*)] 300 mg PO BID 09/07/19 [History Confirmed 09/07/19] Levothyroxine TAB* [Synthroid TAB*] 25 mcg PO DAILY 09/07/19 [History Confirmed 09/07/19] Losartan Potassium [Cozaar] 50 mg PO DAILY 09/07/19 [History Confirmed 09/07/19] Memantine XR CAP* [Namenda XR CAP*] 28 mg PO DAILY 09/07/19 [History Confirmed 09/07/19] Metoprolol Succinate XL TAB* [Toprol XL TAB*] 12.5 mg PO BID 09/07/19 [History Confirmed 09/07/19] Pantoprazole TAB (NF) [Protonix TAB (NF)] 20 mg PO DAILY 09/07/19 [History Confirmed 09/07/19] Solifenacin Succinate 5 mg PO DAILY 09/07/19 [History Confirmed 09/07/19] Tamsulosin CAP* [Flomax CAP*] 0.4 mg PO DAILY 09/07/19 [History Confirmed ] Tramadol HCl [Ultram] 50 mg PO TID PRN MDD Mod-severe 09/07/19 [History Confirmed 09/07/19] Venlafaxine EXT RELEASE CAP(NF [Effexor Xr CAP 225 MG (NF)] 225 mg PO DAILY [History Confirmed 09/07/19] Vitamin B Complex CAP* [B Complex CAP*] 1 cap PO DAILY 09/07/19 [History Confirmed 09/07/19] Warfarin TAB(*) [Coumadin TAB(*)] 3 mg PO SEE INSTRUCTIONS 09/07/19 [History Confirmed 09/07/19] hydroCHLOROthiazide [Hydrochlorothiazide] 12.5 mg PO DAILY 09/07/19 [History Confirmed 09/07/19] traZODone TAB* [Desyrel TAB*] 50 mg PO BEDTIME 09/07/19 [History Confirmed 09/07] PMH/Surg Hx/FS Hx/Imm Hx Endocrine/Hematology History: Reports: Hx Anticoagulant Therapy, Hx Thyroid Disease Denies: Hx Diabetes Cardiovascular History: Reports: Hx Atrial Fibrillation, Hx Hypercholesterolemia , Hx Hypertension, Hx Pacemaker/ICD - X 2 / 12 YEARS AGO., Hx Rheumatic Fever - as a child, Other Cardiovascular Problems/Disorders - HIGH CHOLESTEROL, ON BLOOD THINNERS Denies: Hx Congestive Heart Failure Respiratory History: Reports: Hx Asthma, Hx Sleep Apnea Denies: Hx Chronic Obstructive Pulmonary Disease (COPD), Other Respiratory Problems/Disorders GI History: Reports: Hx Gastroesophageal Reflux Disease Denies: Hx Ulcer History: Denies: Hx Dialysis, Hx Renal Disease, Other Problems/Disorders Musculoskeletal History: Reports: Hx Back Problems - chronic pain, Other Musculoskeletal History - Chronic Neck Pain Denies: Hx Tendonitis Sensory History: Reports: Hx Cataracts - parsanth, Hx Contacts or Glasses Denies: Hx Hearing Aid Opthamlomology History: Reports: Hx Cataracts - prasanth, Hx Contacts or Glasses Neurological History: Reports: Hx Nerve Disease Denies: Other Neuro Impairments/Disorders Psychiatric History: Reports: Hx Anxiety - no meds, Hx Depression - on meds - Surgical History Surgery Procedure, Year, and Place: Pacemaker insertion x2; Cardiac Cath Hx Anesthesia Reactions: No Infectious Disease History: No Infectious Disease History: Reports: Hx Hepatitis - as young adult - does not know type, Hx Shingles - 2009 Denies: Hx Clostridium Difficile, Hx Human Immunodeficiency Virus (HIV), Hx of Known/Suspected MRSA, Hx Tuberculosis, Hx Known/Suspected VRE, Hx Known/ Suspected VRSA, History Other Infectious Disease, Traveled Outside the [place] in Last 30 Days - Family History Known Family History: Positive: Other - Hx transthoracic aortic aneurysm, brother. Hx Pancreatic CA, sister. - Social History Alcohol Use: Weekly Alcohol Amount: 3 weekly Substance Use Type: Reports: None Hx Tobacco Use: No Smoking Status (MU): Never Smoked Tobacco Review of Systems Negative: Vomiting Positive: Other - right religion laceration Negative: Headache All Other Systems Reviewed And Are Negative: Yes Physical Exam - Summary Physical Exam Summary: Constitutional: Well-developed, Well-nourished, Alert. (-) Distressed Skin: Warm, Dry HENT: Normocephalic; Complex laceration to the right religion that is 3 cm. There is surrounding ecchymosis and no bony tenderness. Eyes: Conjunctiva normal Neck: Musculoskeletal ROM normal neck. (-) JVD, (-) Stridor, (-) Tracheal deviation Cardio: Rhythm regular, rate normal, Heart sounds normal; Intact distal pulses; Radial pulses are 2+ and symmetric. (-) Murmur Pulmonary/Chest wall: Effort normal. (-) Respiratory distress, (-) Wheezes, (-) Rales Abd: Soft, (-) tenderness, (-) Distension, (-) Guarding, (-) Rebound Musculoskeletal: (-) Edema Lymph: (-) Cervical adenopathy Neuro: Alert, Oriented x3, GCS 15. Psych: Mood and affect Normal Triage Information Reviewed: Yes Vital Signs On Initial Exam: Initial Vitals Temp Pulse Resp BP Pulse Ox 97.1 F 95 16 118/85 95 12/01/19 16:39 12/01/19 16:39 12/01/19 16:39 12/01/19 16:39 12/01/19 16:39 Vital Signs Reviewed: Yes - Kvng Coma Scale Best Eye Response: 4 - Spontaneous Best Motor Response: 6 - Obeys Commands Best Verbal Response: 5 - Oriented Coma Scale Total: 15 Procedures - Sedation Patient Received Moderate/Deep Sedation with Procedure: No - Laceration/Wound Repair RIGHT DRUZE LACERATION Location: head - right religion Anesthesia: 1.0%, Lido - 4 cc Length, Depth and Shape: 3 cm Irrigated w/ Saline (ccs): 100 Laceration/Wound Explored: clean Closure: Single Layer - uninterrupted Suture Type: Prolene - 5-0 Number of Sutures: 5 Diagnostics - Vital Signs Vital Signs Temp Pulse Resp BP Pulse Ox 12/01/19 16:39 97.1 F 95 16 118/85 95 - Laboratory Lab Statement: Any lab studies that have been ordered have been reviewed, and results considered in the medical decision making process. - CT brain ct CT Interpretation Completed By: Radiologist Summary of CT Findings: IMPRESSION: Atrophy. Chronic ischemic White matter change is noted. No intracranial mass. or hemorrhage is noted. No changes noted since September 14, 2018. THIS REPORT WAS REVIEWED BY ED PHYSICIAN. Head Injury Course/Dx Course Of Treatment: Patient is here after rolling out of head during a bad dream. Patient had a laceration to his right forehead which was successfully repaired. Patient was given tetanus as he was not up-to-date. Given the patient's Coumadin use, a CT scan was performed which showed no intracranial hemorrhage. - Diagnoses Provider Diagnoses: Head injury, Laceration of religion - Critical Care Time Critical Care Statement: Critical care time is provided exclusive of any time spent performing procedures. Discharge ED - Sign-Out/Discharge Documenting (check all that apply): Patient Departure - discharge - Discharge Plan Condition: Stable Disposition: HOME Patient Education Materials: Care For Your Stitches (ED), Head Injury (ED) Referrals: Mary Ellen Root MD [Primary Care Provider] - 7 Days Additional Instructions: YOU CAN WASH YOUR SUTURES, BUT KEEP THEM CLEAN AND DRY OVERALL. YOU WILL NEED TO HAVE YOUR SUTURES OUT IN 7-10 DAYS, PLEASE FOLLOW UP WITH YOUR PRIMARY CARE PHYSICIAN OR RETURN TO THE ED FOR THIS. PLEASE RETURN TO THE ED IMMEDIATELY FOR REPEATED VOMITING, SLURRED SPEECH, ABNORMAL BEHAVIOR, PUS FROM YOUR WOUND, FEVER , OR ANY OTHER CONCERNING SYMPTOMS. - Billing Disposition and Condition Condition: STABLE Disposition: Home - Attestation Statements Document Initiated by Wander: Yes Documenting Scribe: NAT KNIGHT Provider For Whom Wander is Documenting (Include Credential): BRAIN WEINER MD Scribe Attestation: INAT, scribed for BRAIN WEINER MD on 12/01/19 at 1749. Scribe Documentation Reviewed: Yes Provider Attestation: The documentation as recorded by the NAT todd accurately reflects the service I personally performed and the decisions made by me, BRAIN WEINER MD Status of Scribe Document: Viewed
[2019-12-01 18:34] VITALS: BP 130/78
== END 2019-12-01 17:59 | disposition home or self-care (01) ==
LOC: ED 16:30
DX: S01.91XA Laceration without foreign body of unspecified part of head, initial encounter (principal); E03.9 Hypothyroidism, unspecified; I10 Essential (primary) hypertension; E78.00 Pure hypercholesterolemia, unspecified; K21.9 Gastro-esophageal reflux disease without esophagitis; F41.9 Anxiety disorder, unspecified; F32.9 Major depressive disorder, single episode, unspecified; W06.XXXA Fall from bed, initial encounter; Y92.9 Unspecified place or not applicable; Z95.0 Presence of cardiac pacemaker; Z79.01 Long term (current) use of anticoagulants; Z86.79 Personal history of other diseases of the circulatory system; Z79.899 Other long term (current) drug therapy; Z79.82 Long term (current) use of aspirin; Z79.890 Hormone replacement therapy
CPT/HCPCS: 12002; 70450; 90471; 90715; 99282